=== PATIENT | female | born 2000 | race Caucasian/White ===

== ENCOUNTER 2024-11-30 16:39 | Outpatient (REF) | payer OTHER, SELFPAY ==
--- NOTE | ~2024-11-30 | US_ITS ---
CLINICAL HISTORY: Elevated d dimer STAT r o dvt Venous duplex ultrasound bilateral lower extremity Comparison: None provided Findings: The visualized deep veins are fully compressible with normal Doppler color flow and spectral tracings. No popliteal cyst. IMPRESSION: 1. Negative for bilateral lower extremity deep vein thrombosis. This document has been electronically signed by: Caryn Calabrese MD on 11/30/2024 20:07:12
== END 2024-11-30 16:40 | disposition home or self-care (01) ==
LOC: HO.US 16:39
PROVIDERS: PCP Family Medicine; Visit Provider Nurse Practitioner Family
DX: R79.89 Other specified abnormal findings of blood chemistry (principal)
CPT/HCPCS: 93970

== ENCOUNTER → 2024-11-30 17:00 | Outpatient (BNV) | payer OTHER, SELFPAY | PROVIDERS: PCP Family Medicine; Visit Provider Specialist | DX: R79.89 Other specified abnormal findings of blood chemistry (principal) | CPT/HCPCS: 93970 ==

== ENCOUNTER 2025-02-02 21:23 | Emergency (ER) | payer OTHER, SELFPAY ==
--- NOTE | 2025-02-02 | ECG_ITS ---
Test Reason : CHEST PAIN Blood Pressure : */* mmHG Vent. Rate : 97 BPM Atrial Rate : 97 BPM P-R Int : 124 ms QRS Dur : 66 ms QT Int : 352 ms P-R-T Axes : 51 10 6 degrees QTcB Int : 447 ms Normal sinus rhythm Normal ECG No previous ECGs available Referred By: Generic ED Physician Electronically Signed By: MINNIE SARMIENTO MD
--- NOTE | ~2025-02-02 | XR_ITS ---
CLINICAL HISTORY: pain 1 view chest x-ray Comparison: None provided Findings: The lungs are clear. Normal size heart. No acute fracture. IMPRESSION: 1. No acute findings. This document has been electronically signed by: Reyna Arroyo MD on 02/03/2025 00:21:37
[2025-02-02 21:25] VITALS: BP 146/65; PULSE 98; RESP 18; TEMP 36.3; O2SAT 97; BMI 45.7
[2025-02-02 21:48] LABS: Hematocrit 36.9 % (37.0-47.0); Hemoglobin 11.9 g/dl (12.0-16.0); Imm Gran Abs Auto 0.10 X10*3/uL (0.00-0.03); Imm Gran Pct Auto 0.7 % (0.0-0.4); Lymphocytes Absolute Auto 5.4 X10*3/uL (1.2-4.9); MANUAL DIFF FLAG SCAN; Mean Corpuscular HGB Conc 32.2 g/dl (31.0-35.0); Mean Corpuscular Hemoglobin 27.5 pg (27.0-33.0); Mean Corpuscular Volume 85.2 fL (80.0-98.0); NRBC Abs Auto 0.000 X10*3/uL (0.0-0.012); NRBC Pct Auto 0.0 /100WBC (0.0-0.2); Platelet Count 355 X10*3/uL (160-400); Red Blood Count 4.33 X10*6/uL (4.20-5.50); SCAN SMEAR FLAG 1; White Blood Count 14.1 X10*3/uL (4.8-10.8)
--- OUTSIDE RECORDS SUMMARY | 2025-02-02 22:00 | XMS_ITS | Clinical Summary ---
Author Organization [facility] Address [address] [place] [address] Care Team Providers Care Dredge Captain Name Role Phone Justino Santos MD Primary Care Provider [phone] Allergies Active Allergy Reactions Criticality Noted Date Comments Beef Containing Products Abdominal Pain 025 Medications albuterol (PROAIR HFA,VENTOLIN HFA) 90 mcg inhaler 5 Active ARIPiprazole (Abilify) 2 mg tablet Active ARIPiprazole (ABILIFY) 5 mg tablet 5 Active ondansetron (ZOFRAN) 4 mg tablet Take 4 mg by mouth every 8 hours as needed. 4 Active cetirizine (ZyrTEC) 10 mg tablet Take 10 mg by mouth daily. Active EPINEPHrine (EPIPEN) 0.3 mg/0.3 mL injection syringe Inject 0.3 mg into the outer thigh muscle as directed as needed. 5 Active FLUoxetine (PROzac) 20 mg capsule TAKE 1 CAP DAILY BY MOUTH 4 Active norethindrone-ethin estradioL (ORTHO-NOVUM 1-35,NORTREL 1-35) 1-35 mg-mcg per tablet Take 1 tablet by mouth daily. 5 Active ondansetron (ZOFRAN ODT) 4 mg disintegrating tablet SMARTSI-2 Tablet(s) By Mouth Every 8 Hours PRN 4 Active Social History Tobacco Use Types Packs/Day Years Used Date Smoking Tobacco: Never Passive Smoke Exposure: Never Smokeless Tobacco: Never Tobacco Cessation:Counseling Given: Not Answered Alcohol Use Standard Drinks/Week Comments Yes 0 (1 standard drink = 0.6 oz pur e alcohol) Comments Unknown Sex and Gender Information Value Date Recorded Sex Assigned at Female 04/04/2024 1:48 PM EST Legal Sex Female 3:02 PM EST Gender Identity Non-binary 03/29/2024 3:06 PM EST Sexual Orientation Lesbian or [place] 07/27/2024 12 :20 PM EDT Last Filed Vital Signs Vital Sign Reading Time Taken Comments Blood Pressure - - Pulse - - Temperature - - Respiratory Rate - - Oxygen Saturation - - Inhaled Oxygen Concentration - - Weight 128.4 kg (283 lb) 08/02/2024 11:07 AM EDT Height 170.2 cm (5' 7 ) 08/02/2024 11:07 AM EDT Body Mass Index 44.32 08/02/2024 11:07 AM EDT Plan of Treatment Upcoming Encounters Date Type Department Care Team (Late st Contact Info) Description 05/15/2025 Hospital Encounter [facility] Operating Room [address] [place] [address] Sherri Balderas MD [address] [place] [address] Scheduled Procedures Name Priority Associated Diagnoses Date/Ti me RECONSTRUCTION OF NIPPLE AND AREOLA Transgender Gender dysphoria MASTECTOMY, SIMPLE Transgender Gender dysphoria Health Maintenance Due Date Last Done Comments HIV Screening 2001 Hepatitis C Screening 2001 Pap Smear 2001 Varicella Vaccines (1 of 2 - 13+ 2-dose series) 2013 HPV Vaccines (1 - 3-dose series) 01/22/2016 Hepatitis B Vaccines (1 of 3 - 19+ 3-dose series) 12/25 Alcohol/Substance Use Screening 04/25/2024 Depression Screening and Follow-Up 04/25/2024 Social Drivers of Health Annual Screening 04/25/2024 COVID-19 Vaccine ( - season) 2024 Influenza Vaccine (#1) 2024 02/07/2023 Chlamydia Screening 07/09/2025 07/09/2024 DTaP,Tdap,and Td Vaccines (2 - Td or Tdap) 12/20/2032 12/20/2022 RSV Vaccine (60+ years old a nd patients) (1 - 1-dose 75+ series) 01/22/2076 Pneumococcal Vaccine: Pediat sandrine (0-5 Years) and At-Risk Patients (6-50 Years) Completed 11/03/2023 Goals Goal Patient Goal Type Associated Problems Recent Progress Patient-Stated? Author Autogenera vale Goal Care Plan Autogenerated Problem No Sinkis, Amira Additional Health Concerns Active Problems Noted Date Diagnosed Date Autogenerated Problem 10/01/2024 Insurance [facility] HMO/POS Care Teams Dredge Captain Relationship Specialty Start Date End Date Justino Santos MD [address] [place] [phone] PCP - General Family Medicine 04/04/24
--- OUTSIDE RECORDS SUMMARY | 2025-02-02 22:00 | XMS_ITS | Clinical Summary ---
Author Organization [facility] Address [address] [place] [address] Phone Care Team Providers Care Regional Clinical Research Associate Name Role Phone Physician, No Pcp Primary Care Provider Unavaila ble Allergies No known active allergies Social History Tobacco Use Types Packs/Day Years Used Date Smoking Tobacco: Never Assessed Comments Unknown Sex and Gender Information Value Date Recorded Sex Assigned at Not on file Legal Sex Female 2:37 PM EDT Gender Identity Not on file Sexual Orientation Not on file Plan of Treatment Health Maintenance Due Date Last Done Comments Gonorrhea/Chlamydia Screening 2001 Hepatitis B Vaccines (1 of 3 - 19+ 3-dose series) 01/22/2020 Cervical Cancer Screening: P ap Smear 2022 Depression Screening 04/25/2024 Cholesterol Screening (Lipid Panel) 08/14/2024 HIV Screening 08/14/2024 Hepatitis C Screening 08/14/2024 Social Influencers of Health Screening 08/14/2024 COVID-19 Vaccine ( - 2023-2 5 season) 2024 Influenza Vaccine (#1) 2024 02/07/2023 DTaP,Tdap,and Td Vaccines (2 - Td or Tdap) 12/20/2032 12/20/2022 RSV Immunization Adult Patients (1 - 1-dose 75+ series) 01/22/2076 HPV Vaccines Completed 11/03/2023, 08/06/2022, 06/18/2022 Pneumococcal Vaccine: Pediatrics (0 to 5 Years) and At-Risk Patients (6 to 49 Years) Completed 11/03/2023 HIB Vaccines Aged Out No longer eligi ble based on patient's age to complete this topic Hepatitis A Vaccines Aged Out No long er eligible based on patient's age to complete this topic IPV Vaccines Aged Out No longer eligi ble based on patient's age to complete this topic MMR Vaccines Aged Out No longer eligi ble based on patient's age to complete this topic Meningococcal ACWY Vaccine Aged Out N o longer eligible based on patient's age to complete this topic Meningococcal B Vaccine Aged Out No l onger eligible based on patient's age to complete this topic RSV Immunization Patients Under 20 months Aged Out No longer eligible b ased on patient's age to complete this topic Varicella Vaccines Aged Out No longer eligible based on patient's age to complete this topic Insurance Care Teams Regional Clinical Research Associate Relationship Specialty Start Date End Date Physician, No Pcp PCP - General 09/03/24
--- OUTSIDE RECORDS SUMMARY | 2025-02-02 22:01 | XMS_ITS | Data Portability ---
Author Organization [facility], [employer] Address [address] [place] [address] Assessment Encounter Date Assessment Date Assessment LastModified by Organization Details LastModified Time 11/27/2024 11/27/2024 During this encounter, 2 of the 3 elements of MDM addressed: (1)Number and Complexity of problems: 1 or more chronic illness with exacerbation, progression, or side effects of treatment (2)Amount/Complexi ty of data (need 1 out of 3 categories): Category 3: Discussion of management or test interpretation (3)Moderate Risk of morbidity from additional diagnostic testing or treatment (one needed): [email or web address] Not available 11/27/2024 11:57:24 11/29/2024 11/29/2024 Assessment - Elevated D-dimer, PE has been ruled out with CTA, but no doppler US done. - Differential diagnosis includes possible blood clots in the legs (DVT), though considered unlikely. - Consideration of GERD or reflux as a potential cause of chest discomfort, given past history of acid reflux. Plan - Ultrasounds of the legs will be ordered and marked as stat to ensure they are completed before the upcoming gallbladder surgery. The office will contact Bro[facility] for scheduling, likely by the next day. - It is recommended to consider a consultation with a dry press operator to further evaluate the chest discomfort and elevated D-dimer levels. - For potential reflux symptoms, try a dose of Maalox Max or Mylanta Max to see if it alleviates the discomfort. This could help determine if reflux is contributing to the symptoms. - Use the existing supply of omeprazole 20 mg once daily, preferably before supper, to manage any potential acid reflux. If symptoms persist or worsen, the dosage may be adjusted. Prescription - Omeprazole 20 mg once daily before dinner, use existing supply 35 minutes spent on date of service on chart review, direct time spent with patient, and documentation of clinical encounter. [email or web address] Not available 11/29/2024 21:26:22 01/07/2025 01/07/2025 Assessment - Neurological symptoms with neck weakness, left arm radiation, numbness and tingling in left fingertips, and worsening brain fog; etiology undetermined at this time - History of neurocardiogenic syncope - History of Lyme disease, previously treated with doxycycline Plan - Await evaluation by Dr. Santos for further assessment of neurological symptoms and neck weakness. - Remain in clinic for follow-up by attending physician as indicated. Assessment - Symptoms likely related to underlying condition causing hypersensitivity of the nervous system - Reflex tachycardia associated with presyncope episodes - No evidence of acute neurological emergency or need for immediate imaging - No indication of acute multiple sclerosis or other dangerous acute process - Transient chest pain resolved, not concerning for acute cardiac event - Numbness in hands likely secondary to presyncope episode Plan - Prescribed propranolol at a very low dose, scheduled twice daily, to help prevent reflex tachycardia and presyncope symptoms. Medication to be sent to [facility] pharmacy. - Advised to discontinue propranolol immediately if dissociation or other adverse side effects occur. - Recommended close monitoring of symptoms over the next one to two days. - Instructed to contact the clinic or return for evaluation if symptoms worsen, including increased weakness or progression of neurological symptoms, even if this occurs later the same day. - If symptoms progress, MRI or CAT scan of the cervical spine will be considered to evaluate for possible nerve or spinal cord pathology. - Advised to reach out to the clinic if symptoms are getting worse. Prescription - Propranolol, low dose, scheduled twice daily; risk of dissociation d iscontinue if dissociative side effects occur I, Dr Santos personally evaluated. The following time was spent on todays E/M encounter, including preparing for the visit, reviewing results, seeing the patient, and documentation on the date of service of the encounter: 31 [email or web address] Not available 01/09/2025 21:17:22 01/17/2025 01/17/2025 Assessment - Etiology of syncope undetermined; further evaluation with MRI and neurology consult indicated - Decreased hand strength and abnormal sensation; etiology undetermined, further evaluation pending - Fall without loss of consciousness; etiology undetermined - Family history of multiple sclerosis and familial inclusion body myositis noted; consideration for neurological evaluation - No evidence that propranolol contributed to syncope per patient history Plan - Order MRI of the brain with contrast to further evaluate neurological symptoms and family history of multiple sclerosis and familial inclusion body myositis. MRI to be scheduled at [facility], with office staff to contact early next week regarding appointment details. - Refer to neurology for specialist evaluation and opinion, particularly in the context of family history of multiple sclerosis and other neuromuscular disorders. Office staff to contact next week to arrange neurology appointment. - Continue current medication regimen without changes at this time. - Review MRI results upon completion and initiate follow-up contact to discuss findings and next steps. - Await office call for scheduling of MRI and neurology consultation, expected within approximately two weeks. Appointments - Brain MRI with contrast at [facility], scheduling pending (office to call early next week) - Neurology consultation with [facility] neurologist, scheduling pending (coordination next week) [email or web address] Not available 01/17/2025 13:06:42 Plan of Treatment Reminders Order Date Submit Date Provider Last Modified By Organization Details Last Modified Time Details Appointments None recorded. Lab HbA1c (hemoglobi n A1c), blood 2024 025 [place], [address] [place], [address], 11:57:40 Referral neurologis t referral - ? MS - MRI ordered and pending 2024 025 [facility], [address], [place], [address], 09:20:[address] referral 2024 025 [facility] , [address] [place] [address] Dr, [facility], [place], [address], 12:42:19 Procedures None recorded. Surgeries None recorded. Imaging MRI, brain, w/wo contrast 2024 025 [facility]), [address], [place], [address], 13:35:04 US, duplex, venous, lower extremity - right leg [address] [facility], [address] [place], [address], 14:52:44 US, duplex, venous, lower extremity - left leg [address] [facility], [address] [place], [address], 14:52:45 Medication Orders propranolo l 10 mg tablet 2024 025 [email or web address] [id number], [address] [place], [address], 09:31:39 omeprazole 20 mg capsule,de layed release 2024 025 [email or web address] [facility][id number], [address] [place], [address], 12:47:20 Patient TargetsNo targets recorded. Patient Instructions Encounter Date Encounter Id Patient Instructions Last Modified By Organization Details Last Modified Time 01/07/2025 [id number] Based on our discussion, I have outlined the following instructions for you: - set up machinist propranolol from [facility] pharmacy and take it at the very low dose, twice a day, as prescribed. - Stop taking propranolol right away if you feel disconnected from yourself (dissociation) or have any other bad side effects. - Pay close attention to how you feel over the next one to two days. - Contact the clinic or come in for evaluation if your symptoms get worse, including if you feel weaker or notice new or worsening neurological symptoms, even if this happens later the same day. - If your symptoms get worse, you may need an MRI or CAT scan of your neck to check for possible nerve or spinal cord problems. Thank you again for your visit, and we look forward to supporting you in your journey to better health. [email or web address] Not available 01/07/2025 10:00:08 01/17/2025 [id number] Based on our discussion, I have outlined the following instructions for you: - Keep taking your current medicines just as you have been. Do not make any changes. - After your brain scan (MRI) is done, you will be contacted to talk about the results and what to do next. Next appointment(s): - Brain MRI with contrast at [facility], scheduling pending (office to call early next week) - Neurology consultation with [facility] neurologist, scheduling pending (coordination next week) Thank you again for your visit, and we look forward to supporting you in your journey to better health. 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 MS - MRI ordered and pending Referring Physician: Justino Santos [facility], Encounter Date: 01/17/2025 Results Created Date Observation Date Name Description Value Unit Range Abnormal Flag Note LastModifiedBy Organization Detail LastModifiedTime Result Notes None recorded. Problems Name Problem SNOMED Code Status Onset Date Resolution Date Notes Provider Name and Address Organization Details Recorded Time Vasovagal syncope 050486403 Active 2023 SUZANNE TEJADA PA-C [address] [facility] [address], [place], [address], [place] [facility] 5 11:55:52 Gender identity finding 688014331 Active 2023 SUZANNE TEJADA PA-C [address] [facility] [address], [place], [address], [place] [facility] 4 08:48:39 History of eating disorder 8265334191437 01 Active 2023 SUZANNE TEJADA PA-C [address] [facility], [facility] [address], [place], [address], [place] [facility] 4 08:48:42 Obsessive-c ompulsive disorder 254206568 Active 2023 SUZANNE TEJADA PA-C [address] [facility], [facility] [address], [place], [address], [place] [facility] 4 08:48:43 Depressive disorder 11236864 Active 2023 SUZANNE TEJADA PA-C [address] [facility], [facility] [address], [place], [address], [place] [facility] 4 08:48:46 Bipolar II disorder 29949401 Active 2023 SUZANNE TEJADA PA-C [address] [facility], [facility] [address], [place], [address], [place] [facility] 4 08:48:46 Generalized anxiety disorder 52150070 Active 2023 SUZANNE TEJADA PA-C [address] [facility], [facility] [address], [place], [address], [place] [facility] 4 08:48:59 Palpitation s 57386843 Active 2024 SUZANNE TEJADA PA-C [address] [facility] [address], [place], [address], [place] [facility] 5 11:55:52 Orthostatic hypotension 09065090 Active 2024 SUZANNE TEJADA PA-C [address] [facility] [address], [place], [address], [place] [facility] 5 11:55:53 D-dimer above reference range 671449977 Active 2024 Marbella Coleman NP [address] [facility], [facility] [address], [place], [address], [place] [facility] 5 15:59:53 Gastroesoph ageal reflux disease 777588263 Active 2024 Marbella Coleman NP [address] [facility] [address], [place], [address], [place] [facility] 5 16:02:42 Problem Notes None recorded. Procedures Surgical History Date Name Laterality Status Provider Name and Address Organization Details Recorded Time cholecystectomy completed SUZANNE TEJADA PA-C [address] [facility], [facility] [address], [place], [address], [place] [facility] 02/01/2025 11:47:40 Imaging Results None recorded. Procedure Notes None recorded. Medical Equipment None Reported. Medications Name Sig Start Date Stop Date Status Note LastModified by Organization Details LastModified Time fluoxetine 40 mg capsule TAKE 1 CAPSULE BY MOUTH EVERY DAY 11/27 completed Not Available Not Available Not Available naltrexone 50 mg tablet TAKE 1/4 OF A TABLET BY MOUTH DAILY 01/17 completed Not Available Not Available Not Available atenolol 25 mg tablet TAKE 1 TABLET (25 MG TOTAL) BY MOUTH DAILY. 04/16 completed Not Available Not Available Not Available omeprazole 40 mg capsule,del ayed release TAKE 1 CAPSULE BY MOUTH EVERY DAY 11/29 completed Not Available Not Available Not Available propranolol 10 mg tablet TAKE 1 TABLET BY MOUTH TWICE A DAY 2024 active Not Available Not Available Not Avai lable triamcinolo ne acetonide 55 mcg nasal spray aerosol USE 1 TO 2 SPRAYS IN EACH NOSTRIL DAILY 11/29 completed Not Available Not Available Not Available fluoxetine 10 mg capsule TAKE 1 CAPSULE BY MOUTH EVERY DAY 04/16 completed Not Available Not Available Not Available omeprazole 20 mg capsule,del ayed release Take 1 capsule every day by oral route. 01/17 completed Not Available Not Available Not Available epinephrine 0.3 mg/0.3 mL injection, auto-inject or PRN active Not Available Not Available Not Available albuterol sulfate HFA 90 mcg/actuati on aerosol inhaler INHALE 2 PUFFS INTO THE LUNGS EVERY 4 HOURS NEEDED FOR COUGH OR WHEEZING OR SHORTNESS OF BREATH active Not Available Not Available No t Available ondansetron 4 mg disintegrat ing tablet PLACE 1 TABLET 3 TIMES A DAY BY TRANSLING UAL ROUTE NEEDED FOR 7 DAYS active Not Available Not Available No t Available fluoxetine 20 mg capsule TAKE 1 CAPSULE BY MOUTH ONCE DAILY active Not Available Not Available No t Available oxycodone 5 mg tablet TAKE 1 TABLET BY MOUTH EVERY 4 HOURS NEEDED FOR PAIN 01/07 completed Not Available Not Available Not Available aripiprazol e 10 mg tablet Take 1 tablet every day by oral route. active Not Available Not Available No t Available aripiprazol e 15 mg tablet TAKE 1/2 TABLET BY MOUTH DAILY 02/01 completed Not Available Not Available Not Available aripiprazol e 5 mg tablet TAKE 1.5 TABLETS BY MOUTH DAILY 11/29 completed Not Available Not Available Not Available ProChamber USE WITH INHALER DIRECTED active Not Available Not Available No t Available testosteron e 20.25 mg/1.25 gram per pump act.(1.62 %) transdermal gel 2 PUMPS TO SKIN IN THE MORNING TO SHOULDER, UPPER ARMS OR ABDOMEN TRANSDERM AL ONCE A DAY 30 DAYS 07/11 completed Not Available Not Available Not Available Alyacen (28) 1 mg-35 mcg tablet TAKE 1 TABLET BY MOUTH DAILY. SKIP PLACEBO PILLS active Not Available Not Available No t Available Vitals Date Recorded Body height Body mass index (BMI) Body weight Heart rate Oxygen saturation Oxygen saturation in Arterial blood by Pulse oximetry Systolic And Diastolic Provider Name and Address Organization Details Last Updated DateTime 5 170.18 cm 44.8 kg/m2 079858. 42 g 84 /min 98 % 98 % 110/90 mm[Hg] [facility] 10:02:46 Date Recorded Body height Body mass index (BMI) Body weight Oxygen saturation Oxygen saturation in Arterial blood by Pulse oximetry Heart rate Systolic And Diastolic Provider Name and Address Organization Details Last Updated DateTime 5 170.18 cm 44.4 kg/m2 632115. 04 g 98 % 98 % 90 /min 122/76 mm[Hg] Idalia Johnson becca [facility] 5 15:32:20 Date Recorded Body height Heart rate Oxygen saturation Oxygen saturation in Arterial blood by Pulse oximetry Systolic And Diastolic Provider Name and Address Organization Details Last Updated DateTime 5 170.18 cm 80 /min 98 % 98 % 122/74 mm[Hg] Mahogany Bennett, WIRE WELDER [address] [facility] [address], [place], [address], [facility] 5 09:35:41 Date Recorded Body height Body mass index (BMI) Body weight Oxygen saturation Oxygen saturation in Arterial blood by Pulse oximetry Heart rate Systolic And Diastolic Provider Name and Address Organization Details Last Updated DateTime 5 170.18 cm 46.7 kg/m2 952244. 53 g 99 % 99 % 80 /min 128/80 mm[Hg] [facility] 5 12:48:41 Date Recorded Body height Body mass index (BMI) Body weight Oxygen saturation Oxygen saturation in Arterial blood by Pulse oximetry Heart rate Systolic And Diastolic Provider Name and Address Organization Details Last Updated DateTime 170.18 cm 46 kg/m2 401367. 16 g 99 % 99 % 67 /min 126/74 mm[Hg] Idalia hudson [place] [facility] 11:32:08 Social History Question Answer Notes LastModified by Organizat [facility] Details LastModified Time Tobacco Smoking Status Never Smoker SUZANNE TEJADA PA-C [address] [place] [address] [address], [place], [address], [facility] 04/16/2024 08:24:32 What Was The Date Of Your Most Recent Tobacco Screening? 04/16/2024 Socially [email or web address] Information not available 04/16/2024 Sex: Female Functional Status Question Answer Note LastModified by Organizat [facility] Details LastModified Time Do you use any illicit or recreational drugs? edibles or smoking 5-7 times per week [email or web address] Information not available 04/16/2024 Mental Status None recorded. Family History Relationship Description Onset Age of this Age Resolved Age Notes LastModified by Organization Details LastModified Time Maternal Grandmother Diabetes mellitus [email or web address] Not available 2023 08:20:03 Maternal Grandmother Myocardial infarction 45 undete rmined if AR was cause of [email or web address] Not available 04/16/2024 08:21:13 Maternal Uncle Diabetes mellitus Not available 2023 08:20:03 Paternal Grandmother Myocardial infarction 50 [email or web address] Not available 04/16 08:21:13 Father Hypertensive disorder [email or web address] Not available 2023 08:21:56 Unspecified Relation Obesity matern al side [email or web address] Not available 04/16/2024 08:22:10 Unspecified Relation Depressive disorder [email or web address] Not available 2023 08:22:56 Unspecified Relation Bipolar disorder [email or web address] Not available 2023 08:23:10 Unspecified Relation Anxiety disorder Not available 2023 08:23:23 Medical History No medical history recorded. Gynecological HistoryNo gynecological history recorded. Obstetrics History GPAL:G 0 P 0 0 0 0 Past Encounters Encounter ID Performer Location Encounter Start Date Encounter Closed Date Diagnosis/Indication Diagnosis SNOMED-CT Code Diagnosis ICD10 Code Diagnosis IMO Codes Diagnosis Note [id number] SUZANNE TEJADA PA-C Main Office [address] [place] [address],[address] [place] [address] 04/16/2024 07:52:15 04/16/2024 08:33:44 Patient new to provider [id number] 32142 Z76.89 Patient new to practice, here to establish care. Has not been seen by this office or provider within the last 3 years. Generalize d anxiety disorder 79606591 F41.1 [facility]; followed Q4-6 weeks.Cont inues with therapist. Maintained on aripiprazo le and fluoxetine , although not currently taking meds in last few weeks. Depressive disorder 3548 9007 F32.A As above. Bipolar II disorder 8322 5003 F31.81 As above. Obsessive- compulsive disorder 269106295 F42.9 History of eating disorder 2368794312 73563 Z86.59 Vasovagal syncope 373837 [address] Florence. Continues with good hydration and electrolyt e repletion. Has not trialed compressio n socks. Curious if they may struggle with an underlying POTS diagnosis. Gender shamar ntity finding 222939823 F64.0 Testostero ne therapy prescribed by [facility] oming breast reconstruc tion consult July [address] Sherri Balderas at [facility]. Allergic r eaction to food 832844819 T78.1XXS Requests referral for formal allergy testing. 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 [id number] Justino Santos DO Main Office [address] [facility],[address] [place] [address] 08/29/2024 08:18:21 08/29/2024 09:18:42 Bipolar disorder 94277770 F31.81 Immobility syndrome 2029 25022 M62.3 [id number] fax [phone] Obstructiv e sleep apnea syndrome 26093775 G47.33 671704 Postural o rthostatic tachycardia syndrome 594466955 G90.A 371436 [id number] Justino Santos DO Main Office [address] [facility],[address] [place] [address] 10/10/2024 08:30:10 10/10/2024 09:10:49 Biliary calculus 594857231 K80.20 [id number] Obsessive- compulsive disorder 397232950 F42.9 Tick bite 83276683 S20.3 61D W57.XXXD 9480259162 Acute vomiting 33616252 R11.10 4537558 [id number] SUZANNE TEJADA PA-C Main Office [address] [facility],[address] [place] [address] 11/27/2024 09:56:30 11/27/2024 10:28:12 Seen in department 583360831 Z76.89 [id number] 11/11/2024 emergency medicine note reviewed. Palpitations 56474264 R0 0.2 43578 Prediabetes 856525018 R7 3.03 874568 Vasovagal syncope 800853 005 R55 [id number] Previously followed by Dr. Florence, although not at this time. Management as above.10/17: Positive head up Tilt Table Test for neurocardi ogenic (vasovagal ) syncope. The patient exhibited a mixed cardioinhi bitory and vasodepres sor response after 10 minutes of an upright tilt. Orthostati c hypotension 61613862 R42 9444609 Suspected underlying POTS; patient has not been formally diagnosed but would like to establish with cardiology for further evaluation . Does have concerns regarding underlying EDS, which they believe may have been an etiology present on maternal side as well, although unofficial ly diagnosed. Continues with conservati ve management including compressiv e socks, adequate hydration, electrolyt e repletion, slow transition al changes, etc. Chest pain 35177843 R07. 9 90770956 1 episode of atypical chest pain on 11/15/24 with spontaneou s resolution and no recurrence ; no clear contributi ng musculoske letal/pulm onary factors. No evidence of ACS per ED documentat ion. Will arrange a referral to a cardiologi st for further evaluation of chest pain and potential POTS diagnosis. The patient expressed discomfort with the previous cardiologi st, so it is recommende d to research and find a suitable cardiologi st who is well-verse d in autonomic dysfunctio n and Simran-Cristi los Syndrome. Bipolar II disorder 8322 5003 F31.81 Followed/m anaged by psychiatry . Patient initially requesting updated labs for psych, but we reviewed that recent CBC, CMP, TSH from June 2024 should be adequate. Patient will reach out if they need any additional order sent. [id number] Marbella Coleman NP Main Office [address] [place] [address] [place] [address] 11/29/2024 15:13:47 11/29/2024 16:04:52 D-dimer above reference range 307289593 R79.89 92081068 Gastroesop hageal reflux disease 537797208 K21.9 [id number] Justinokathleen Santos DO Main Office [address] [place] [address] [place] [address] 01/07/2025 09:24:23 01/07/2025 09:54:22 Vasovagal syncope 725307438 R55 255594 Orthostati c hypotension 97616787 R42 1643712 Depressive disorder 3548 9007 F32.A Mild major depression 87 275651 F32.0 75615 Recurrent major depressive episodes, mild 798706078 F33.0 49398 [id number] Justino Santos DO Main Office [address] [place] [address] [place] [address] 01/17/2025 12:40:23 01/17/2025 13:27:07 Vasovagal syncope 280096023 R55 502995 Multiple sclerosis 54996 007 G35 03829 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 No evidence of ACS per ED documentat ion. Will arrange a referral to a cardiologi st for further evaluation of chest pain and potential POTS diagnosis. The patient expressed discomfort with the previous cardiologi st, so it is recommende d to research and find a suitable cardiologi st who is well-verse d in autonomic dysfunctio n and Simran-Cristi los Syndrome. Health Concerns Section Related Observation LastModified by Organization Detai ls LastModified Time None Recorded Concern Status LastModified by Organization Details LastModified Time None Recorded Advance Directives Directive None Recorded Payers Insurance Date Sequence Insurance Name Policy Number Policy Ross Covered Member ID Ross Member ID Guarantor Name 10/24/2024 1 [facility]: HMO [facility] (HMO) [id number] Brooke Jo [id number] Brooke Jo 01/31/2025 2 [facility] (HMO) [id number] Brooke L Jo [id number] Brooke Jo 11/27/2024 1 [facility] [employer] - TOGETHER (MEDICAID HMO) [id number] Brooke L Jo [id number] Brooke Jo 01/31/2025 1 [facility] [employer] - TOGETHER WITH [employer] (MEDICAID REPLACEMENT - HMO) [id number] Brooke L Jo [id number] Brooke Jo Notes Date Note Type Note Provider Name and Address Organization Details Recorded Time 11/27/2024 text/html ROS as noted in the HPI Brooke Osorio, 24-year-old nonbinary patient (AFAB), presents for an ED discharge visit. Patient reported an episode of chest pain, with a severe episode on November 15, 2024, described as sharp, central but slightly left-sided, lasting approximately 6 hours while at rest, which prompted them to obtain an ED evaluation. Onset of sx occurred while watching tv. Previous chest pain episodes were less severe and attributed to suspected POTS. During the November 15 episode, also experienced jaw locking and mild left arm discomfort, as well as numbness and tingling in the left fingers, all resolving spontaneously. Pain improved with compression/massaging of affected area. EKG was NSR. No labs runs. ED suspected MSK etiology. No recent recurrence of chest pain since that episode. No recent infections, trauma, cough, or lower extremity swelling. No abdominal pain, nausea, or vomiting associated with chest pain. Two prior ER visits for gallbladder issues reported; scheduled for elective cholecystectomy next week. Experiences intermittent palpitations, stable since childhood, described as a sensation of veins sinking in arms and legs, with heart rate picking up and occasional skipped beats, occurring a few times daily for years without change. Symptoms of lightheadedness and dizziness with positional changes, especially when climbing stairs, with heart rate dropping to 54 and spiking to 154, as measured by Apple Watch. Noted worsening of symptoms since Lyme disease. History of heart murmur since childhood; last echocardiogram approximately one year ago. Multiple prior Zio patch monitors showed occasional premature ventricular or atrial beats. Previously trialed beta rosas, which caused significant blood pressure drops. SUZANNE TEJADA PA-C [address] [facility], [address], [place], [phone], [facility] 11/27/2024 12:00:04 11/29/2024 text/html ROS as noted in the HPI Brooke Osorio, 24-year-old female - Chest pain started a while ago, progressively worsening, described as feeling like knives attached to fingertips in the chest area - Chest pain became severe a couple of weeks ago, prompting first ER visit; pain abated for 2 weeks, then recurred with increased severity on the morning of the current visit, causing awakening from sleep in tears - No association of chest pain with exertion; occurs at rest, including while lying in bed or going to the bathroom - No associated nausea, sweats, or shortness of breath reported - No heartburn symptoms - No recent trauma, travel, or new strenuous exercise - History of gallstones; admitted to ER twice over a month ago for gallbladder pain, described as very different from current chest pain - Reports westbrook splint-like pain in legs for past few days, history of westbrook splints from previous point dancing - Noted increased bruising on legs and color changes, no recent shaving - No leg swelling reported, but some tenderness in the front of legs - No recent infection, dental work, or menstruation - History of acid reflux in the past, previously treated with omeprazole 40 mg daily for 2 months with resolution of symptoms - Reports increased anxiety related to upcoming gallbladder surgery, first major surgery Marbella Coleman, [employer] [address] [facility] [address], [place], [phone], [place] [facility] 11/29/2024 21:26:36 01/07/2025 text/html ROS as noted in the HPI Brooke Osorio 24-year-old female - Sudden onset of significant neck weakness during dinner last night, without pain or stiffness, able to turn neck but difficulty holding head up - Weakness radiating down left side, currently to left shoulder blade and arm - Mild numbness and tingling in left fingertips - Marked increase in brain fog, worse than baseline, with difficulty remembering recent events and trouble with orientation while driving - History of neurocardiogenic syncope with baseline brain fog, but current symptoms more severe than usual - Similar left-sided numbness (without neck weakness) occurred previously at time of Lyme disease diagnosis; treated with one month of doxycycline, no recheck - Denies recent COVID infection - No medications taken for current symptoms prior to visitBrooke Osorio 24-year-old female - Right hand clumsiness and weakness noted while texting and gripping phone prior to visit - No limitation in shoulder range of motion - Denies sensation changes - Experienced ringing in ears and presyncope last night - Dizziness reported when changing positions (laying to sitting, sitting to standing) - Slept normally, woke up rested - Sudden chest pain at sternum lasting about one minute, resolved, did not recur - Presyncope episodes occur a couple times a day - Salt tablets provide temporary relief during episodes - Prior use of naltrexone reported as helpful for presyncope - Prior use of atenolol caused dissociation and hypotension - Both hands became numb following presyncope episode prior to visit Justino Santos, [address] [facility], [facility] [address], [place], [phone], [place] [facility] 01/09/2025 21:18:22 01/17/2025 text/html ROS as noted in the HPI Julisa Osorio 24-year-old female - Fainted twice prior to initial medical visit, sought fluids - Passed out Tuesday night prior to starting propranolol, started propranolol Tuesday, passed out again Tuesday - No fainting episodes since starting propranolol - Reports persistent weakness and abnormal sensation in hands, difficulty clenching fists - Fell yesterday without loss of consciousness, describes sudden inability to walk - Stopped naltrexone a couple of weeks ago due to difficulty swallowing, no perceived difference since discontinuation - 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 - Family history of multiple sclerosis and familial inclusion body myositis Justinokathleen Santos, DO [address] [facility], [address], [place], [phone], [place] [facility] 01/17/2025 13:07:45 02/01/2025 text/html ROS as noted in the HPI chest pain restarted within last 4 nightsfeel slike someting i is inside chest (just to the right)comes and goessimilar to past but worseafter eating and going to the bathroom7-12/02having to thinkvomiting difficulty swallowing- nauseoud immediately, few weekshistory of cholecytecomy in nov 2024- removed d/t gallstones f/u nov cardioAbstephanie Osorio, age 25, reports recurrence of chest pain beginning three nights ago, described as a sensation of someone inside her chest within her throat, slightly to the right of center. The pain is present throughout the day, comes and goes, and is more severe than previous episodes. She notes that the pain sometimes worsens after eating or when going to the bathroom. She rates the severity as high, stating it makes her focus on her breathing. She also reports difficulty swallowing, which has been ongoing for a few weeks, characterized by nausea with any food in her mouth, but not due to tongue swelling. She experiences similar nausea with liquids, requiring her to hold liquids in her mouth before swallowing, and sometimes feels unable to swallow at all. She has been throwing up more frequently recently, with episodes triggered by random factors such as certain smells (e.g., litter box) and sometimes after eating, regardless of the type of food. She has a history of gallbladder removal in November 2024, following two emergency department visits for inability to keep food or fluids down and recurrent vomiting after eating. Gallstones were identified prior to surgery. Postoperatively, she experienced night sweats and increased pain about a week after surgery, which resolved without fever. She reports ongoing symptoms similar to those experienced before gallbladder removal, including immediate need to use the bathroom after eating and inability to retain food. She was previously prescribed omeprazole for suspected acid reflux, which provided limited relief, and used it for approximately three months, taking it on an empty stomach. She has Pepcid at home for symptom management. She denies heartburn. She avoids fried foods and dairy due to intolerance and prefers sushi, sometimes with spicy casanova. She reports tingling and numbness in her fingers coinciding with chest pain episodes. She has a family history of multiple sclerosis and a familial myositis-like condition, with her grandfather affected. She underwent muscle density testing in the emergency department, which was normal. She has had recent laboratory testing in the emergency department, including liver and kidney function, complete blood count, and tick testing, all of which were normal as of January 11, 2025. She denies fever and chills. She is scheduled to see a nurse practitioner in cardiology in February and has a brain MRI planned due to family history of MS. Not Available Not Available Not Available OBGyn Episode No OBEpisode recorded.
[2025-02-02 22:08] LABS: Alanine Aminotransferase 50 U/L (0-31); Albumin Level 4.4 g/dL (3.5-5.0); Alkaline Phosphatase 90 U/L (39-117); Anion Gap 10 (12-20); Aspartate Amino Transferase 35 U/L (5-31); Blood Urea Nitrogen 14 mg/dL (9-16); Calcium 9.2 mg/dL (8.4-10.2); Carbon Dioxide 25 mmol/L (22-29); Chloride 108 mmol/L (96-108); Creatinine Clr Calc Pharmacy 143.1; Estimated Glomerular Filt Rate > 60; Lipase 16 U/L (8-78); Magnesium 2.0 mg/dL (1.6-2.6); Potassium 3.9 mmol/L (3.3-5.1); Sodium 139 mmol/L (135-145); Total Protein 7.6 g/dL (6.5-8.0)
[2025-02-02 22:18] LABS: Troponin-I High Sensitivity < 2.7 ng/L (<3.5-17.0)
--- NOTE | 2025-02-02 22:54 | ED_ITS ---
HPI - Chest Pain General Chief Complaint: Chest Pain Stated Complaint: abd pain Time Seen by Provider: 02/02/25 22:38 Source: patient Limitations: no limitations History of Present Illness ED Provider: Luzma Majano PA-C HPI narrative: 25F with a past medical history of GERD, recent cholecystectomy in Nov, neurocardiogenic syncope, PVCs, bipolar disorder, anxiety/depression presents to the ED for evaluation of chest pain. States chest pain has been coming and going for months, lasts for hours at a time. Describes it as retrosternal, nonradiating. Chest pain is associated with dyspnea, N/V, nonbloody emesis. Endorsing yellow diarrhea since cholecystectomy, increased frequency for the past 2-3 weeks, up to 5 times a day. No recent illnesses, ABX use, recent travel, or sick contacts. Seen by PCP yesterday, started on omeprazole 40mg BID. Has not noticed an improvement yet. She was previously started on propranolol with no improvement. Currently undergoing outpatient cardiac and GI workup. Multiple holter monitor trials done with no findings to explain patient's symptoms. Related Data Allergies Allergy/AdvReac Type Severity Reaction Status Date / Time No Known Allergies Allergy Verified 02/02/25 21:26 Review of Systems 2 Review of Systems: Yes all other systems are reviewed and are negative Constitutional: Constitutional: Denies chills, Denies fatigue and Denies fever(s) Cardiovascular: Cardiovascular: Reports chest pain, Denies leg edema and Reports dyspnea Respiratory: Respiratory: Reports dyspnea Gastrointestinal: Gastrointestinal: Reports abdominal pain, Denies melena, Denies hematochezia, Denies constipation, Reports heartburn, Reports diarrhea, Reports nausea, Reports vomiting and Denies hematemesis Genitourinary: Genitourinary: Reports no additional female genitourinary complaints Psychiatric: Psychiatric: Reports anxiety and Reports depression Endocrine: Endocrine: Denies fatigue PMFSH Past Medical History Attestation statement: The following information was validated with the patient. Social History Social History Alcohol intake: current Alcohol intake frequency: holidays/special occasions only Alcohol type: beer, wine and hard liquor Substance Use Type: Marijuana Physical Exam 2 Vital Signs: Vital Signs: Last Vital Signs Temp 97.9 F 02/03/25 01:32 Pulse 79 02/03/25 01:32 Resp 20 02/03/25 01:32 BP 106/72 02/03/25 01:32 Pulse Ox 99 02/03/25 01:32 O2 Del Method Room Air 02/03/25 01:32 BMI result Body Mass Index 45.7 Const: Other: Alert General: no acute distress, alert and awake Nutritional Appearance: o bese Orientation/consciousness: patient oriented x3 Chest: Chest palpation & inspection: normal inspection of the chest and normal palpation of entire chest wall Resp: Effort & Inspection: normal respiratory effort Auscultation: clear to auscultation bilaterally Cardio: Other: Normal peripheral perfusion Rate: regular rate Rhythm: regular rhythm GI: Other: Obese abdomen, nontender nondistended no guarding Inspection: Yes normal to inspection Palpation (GI): Soft to palpation, nontender and No Rebound tenderness present Skin: Other: Warm dry no rash Neuro: General: patient oriented x3, gait normal, no focal motor deficits and CN's II-XI intact bilaterally Psych: Other: cooperative Course Course Course Narrative: I Luzma Majano assessment. Aileen DANIELLE helped to formulate the documentation Medical Decision Making Medical Decision Making MDM Narrative: 25F with a past medical history of GERD, recent cholecystectomy in Nov, neurocardiogenic syncope, PVCs, bipolar disorder, anxiety/depression presents to the ED for evaluation of chest pain. States chest pain has been coming and going for months, lasts for hours at a time. Describes it as retrosternal, nonradiating. Chest pain is associated with dyspnea, N/V, nonbloody emesis. Endorsing yellow diarrhea since cholecystectomy, increased frequency for the past 2-3 weeks, up to 5 times a day. No recent illnesses, ABX use, recent travel, or sick contacts. Seen by PCP yesterday, started on omeprazole 40mg BID. Has not noticed an improvement yet. She was previously started on propranolol with no improvement. Currently undergoing outpatient cardiac and GI workup. Multiple holter monitor trials done with no findings to explain patient's symptoms. I've considered the following diagnoses: ACS, pulmonary embolism, pneumothorax, pancreatitis, C diff, reflux Plan: Patients symptoms are chronic, had her PCP appt yesterday and was told to present to the ED if symptoms persist. EKG normal sinus rhythm, troponin flat. PERC score of 1 due to NELLIE use. Patient not hypoxic or tachycardic, pulmonary embolism unlikely. CXR with no evidence of pneumothorax. Epigastric/LUQ tenderness on exam but lipase wnl making pancreatitis unlikely. Diarrhea could be bile acid- related, post cholecystectomy. Patient provided stool sample, CDiff PCR and GI panel pending. Proceed with pending GI referral for outpatient workup of diarrhea and potential GI cause of chest pain. I've reviewed the following results: CBC showing leukocytosis of 14.1 and mild anemia. CMP with small bump in liver transaminases. EKG Vent. Rate : 97 BPM Atrial Rate : 97 BPM P-R Int : 124 ms QRS Dur : 66 ms QT Int : 352 ms P-R-T Axes : 51 10 6 degrees QTcB Int : 447 ms Normal sinus rhythm Normal ECG No previous ECGs available CXR Findings: The lungs are clear. Normal size heart. No acute fracture. IMPRESSION: 1. No acute findings. Per Luzma Majano PA-C The patient is here with all chronic complaints. She has been told by her primary care provider and passenger service representative if she develops chest pain she should be seeking emergent medical attention. Beyond obesity she has no risk factors for coronary artery disease, screening labs including EKG chest x-ray and troponin obtained. Waiting on the chest x-ray. Stool cultures were ordered from triage, technically she has no risk factors, we tried to have her give a sample, she can not, her chronic diarrhea is likely secondary to her cholecystectomy. Differential Diagnosis Differential Diagnoses: The differential diagnosis associated with the presentation includes See medical decision-making Admission/Observation Consideration of admission/observation: Escalation of care including admission/observation considered Not applicable Lab Data MDM Lab Attestation statement: I reviewed the patient's lab results. 02/02/25 21:39 02/02/25 21:39 Labs: Lab Results 02/02/25 02/03/25 Range/Units 21:39 00:21 WBC 14.1 H (4.8-10.8) X10*3/uL RBC 4.33 (4.20-5.50) X10*6/uL Hgb 11.9 L (12.0-16.0) g/dl Hct 36.9 L (37.0-47.0) % MCV 85.2 (80.0-98.0) fL MCH 27.5 (27.0-33.0) pg MCHC 32.2 (31.0-35.0) g/dl RDW 14.1 (11.0-16.0) % Plt Count 355 (160-400) X10*3/uL MPV 10.0 (9.4-12.3) fL Immature Gran % (Auto) 0.7 H (0.0-0.4) % Neut % (Auto) 49.7 (45-73) % Lymph % (Auto) 38.6 (20-40) % [place]ham % (Auto) 8.4 (2-11) % Eos % (Auto) 2.1 (0-4) % Baso % (Auto) 0.5 (0-2) % Lymph # (Auto) 5.4 H (1.2-4.9) X10*3/uL [place]ham # (Auto) 1.2 (0.1-1.2) X10*3/uL Eos # (Auto) 0.3 (0.0-0.4) X10*3/uL Baso # (Auto) 0.1 (0.0-0.2) X10*3/uL Abs Immat Gran (auto) 0.10 H (0.00-0.03) X10*3/uL Absolute Neuts (auto) 7.0 (2.0-8.3) x10*3/uL Absolute Nucleated RBC 0.000 (0.0-0.012) X10*3/uL Nucleated RBC % (auto) 0.0 (0.0-0.2) /100WBC Smear Tech's Comments VERIFIED Sodium 139 (135-145) mmol/L Potassium 3.9 (3.3-5.1) mmol/L Chloride 108 (96-108) mmol/L Carbon Dioxide 25 (22-29) mmol/L Anion Gap 10 L (12-20) BUN 14 (9-16) mg/dL Creatinine 0.86 (0.5-1.4) mg/dL Estim Creat Clear Calc 143.1 Estimated GFR > 60 Random Glucose 112 (60-115) mg/dL Calcium 9.2 (8.4-10.2) mg/dL Magnesium 2.0 (1.6-2.6) mg/dL Total Bilirubin 0.2 (0.0-1.0) mg/dL Direct Bilirubin < 0.2 (0.0-0.5) mg/dL AST 35 H (5-31) U/L ALT 50 H (0-31) U/L Alkaline Phosphatase 90 (39-117) U/L Troponin I High Sens < 2.7 (<3.5-17.0) ng/L Total Protein 7.6 (6.5-8.0) g/dL Albumin 4.4 (3.5-5.0) g/dL Lipase 16 (8-78) U/L Beta HCG, Quant < 2 mIU/mL C. difficile Tox B Gene NEGATIVE (Negative) Independent Interpretation I performed an independent interpretation of an: EKG Radiology Impression Discussion of test interpretation with radiology: I have reviewed the radiologist's reading. Discharge Plan Discharge Clinical Impression: Chronic chest pain Patient Disposition: Home, Self-Care Instructions: Chronic Pain (ED) Additional Instructions: All of your screening labs including a cardiac enzymes were normal. There were no concerning changes on the EKG in the chest x-ray is clear. Keep your follow up with your passenger service representative, keep your pending follow up with your loftsman. We attempted to collect stool studies, you were unable to give a sample. This is something they can evaluate as well. Interventions: ED Discharge Assessment Last Done: 02/03/25 01:32 Discharge Date/Time: 02/03/25 01:33 Print Language: Chinese
[2025-02-03 01:28] VITALS: BP 106/72; PULSE 79; RESP 20; TEMP 36.6; O2SAT 99
[2025-02-03 01:31] LABS: CDiff Gene PCR NEGATIVE (Negative)
[2025-02-03 01:32] VITALS: BP 106/72; PULSE 79; RESP 20; TEMP 36.6; O2SAT 99
[2025-02-03 09:18] LABS: E. coli EAEC Not Detected (Not Detect.); E. coli EPEC Not Detected (Not Detect.); E. coli ETEC Not Detected (Not Detect.); E. coli STEC Not Detected (Not Detect.); Shigella sp./EIEC Not Detected (Not Detect.)
== END 2025-02-03 01:33 | disposition home or self-care (01) ==
PROVIDERS: Emergency Provider Emergency Medicine; PCP Family Medicine
DX: R07.89 Other chest pain (principal); R06.02 Shortness of breath; R11.2 Nausea with vomiting, unspecified; R10.23 Pelvic and perineal pain bilateral; Z79.899 Other long term (current) drug therapy
CPT/HCPCS: 36415; 71045; 80053; 82248; 83690; 83735; 84484; 84702; 85025; 87493; 87507; 93005; 99283; 99285

== ENCOUNTER → 2025-02-02 21:32 | Outpatient (BNV) | payer OTHER, SELFPAY | PROVIDERS: Emergency Provider Emergency Medicine; PCP Family Medicine; Visit Provider Internal Medicine Cardiovascular Disease | DX: R07.9 Chest pain, unspecified (principal) | CPT/HCPCS: 93010 ==

== ENCOUNTER → 2025-02-03 00:01 | Outpatient (BNV) | payer OTHER, SELFPAY | PROVIDERS: PCP Family Medicine; Visit Provider Student in an Organized Health Care Education/Training Program | DX: R07.9 Chest pain, unspecified (principal) | CPT/HCPCS: 71045 ==

== ENCOUNTER 2025-03-12 00:46 | Emergency (ER) | payer OTHER, SELFPAY ==
[2025-03-12 00:50] VITALS: BP 121/60; PULSE 84; RESP 20; TEMP 36.7; O2SAT 99; BMI 43.8
[2025-03-12 01:33] VITALS: BP 118/82; PULSE 86; RESP 16; TEMP 36.9; O2SAT 98
[2025-03-12 01:34] LABS: Hematocrit 36.3 % (37.0-47.0); Hemoglobin 11.8 g/dl (12.0-16.0); Imm Gran Abs Auto 0.06 X10*3/uL (0.00-0.03); Imm Gran Pct Auto 0.5 % (0.0-0.4); Lymphocytes Absolute Auto 4.4 X10*3/uL (1.2-4.9); MANUAL DIFF FLAG NO; Mean Corpuscular HGB Conc 32.5 g/dl (31.0-35.0); Mean Corpuscular Hemoglobin 27.3 pg (27.0-33.0); Mean Corpuscular Volume 84.0 fL (80.0-98.0); NRBC Abs Auto 0.000 X10*3/uL (0.0-0.012); NRBC Pct Auto 0.0 /100WBC (0.0-0.2); Platelet Count 350 X10*3/uL (160-400); Red Blood Count 4.32 X10*6/uL (4.20-5.50); White Blood Count 12.2 X10*3/uL (4.8-10.8)
[2025-03-12 01:50] LABS: Alanine Aminotransferase 48 U/L (0-31); Albumin Level 4.0 g/dL (3.5-5.0); Alkaline Phosphatase 76 U/L (39-117); Anion Gap 11 (12-20); Aspartate Amino Transferase 39 U/L (5-31); Blood Urea Nitrogen 14 mg/dL (9-16); Calcium 9.0 mg/dL (8.4-10.2); Carbon Dioxide 26 mmol/L (22-29); Chloride 106 mmol/L (96-108); Creatinine Clr Calc Pharmacy 132.0; Estimated Glomerular Filt Rate > 60; Lipase 19 U/L (8-78); Potassium 3.8 mmol/L (3.3-5.1); Sodium 139 mmol/L (135-145); Total Protein 7.0 g/dL (6.5-8.0)
--- NOTE | 2025-03-12 03:38 | ED.ABDPAIN ---
HPI - Abdominal Pain General Chief Complaint: Abdominal Pain Stated Complaint: severe abd pain Time Seen by Provider: 03/12/25 03:37 Source: patient Mode of arrival: ambulatory Limitations: no limitations History of Present Illness ED Provider: Nabil REEDER HPI narrative: The patient is a 25-year-old female with a history of GERD, cholecystectomy this past November, PVCs, bipolar disorder, anxiety, depression, and neurocardiogenic syncope, presenting to the ED for evaluation of left upper quadrant abdominal pain. Patient reports pain began Tuesday evening after eating with her mother, patient reports she shared the same meal with her mother and her mother was without symptoms. Patient reports since that time she has been experiencing severe left upper quadrant abdominal pain described as a dull but strong pain without radiation. The patient reports pain waxes and wanes, reports associated mild nausea, however denies associated fever/chills, vomiting, diarrhea, chest pain, shortness of breath, hematochezia, melena, dysuria, hematuria, or urinary symptoms. The patient reports she was seen at [facility] on Tuesday for evaluation of this pain, patient reports an abdominal CT was performed which revealed renal cysts, but no other acute abnormality. The patient reports she was treated with Toradol and nausea medication, and discharged home. Patient reports pain returned around 21:00 at which time she took Tylenol without significant change in symptoms. When symptoms increased upon waking overnight, the patient presented to the ED for evaluation. The patient reports she has been recently treated with a 2 week course of omeprazole which she finished approximately 1-2 weeks ago. The patient reports she is currently taking Pepcid b.i.d., denies other antacids. The patient reports a history of endometriosis, reports she is currently menstruating. Related Data Previous Rx's ?Medication ?Instructions ?Recorded sucralfate 1 gram tablet (Carafate) 1 g PO BID #30 tabs 03/12/25 Allergies Allergy/AdvReac Type Severity Reaction Status Date / Time No Known Allergies Allergy Verified 03/12/25 00:53 Review of Systems Review of Systems Yes all other systems are reviewed and are negative [facility] Social History Social History Alcohol intake: current Alcohol intake frequency: holidays/special occasions only Alcohol type: beer, wine and hard liquor Smoked in Last 30 Days: No Substance Use Type: Marijuana Advance Directives: No Advance Directives Information Provided: Yes Do you have a plan to hurt others: No Plan Patient : No Physical Exam ED Vital Signs: Vital Signs - 24 hr 03/12/25 00:50 03/12/25 01:33 03/12/25 04:31 Temperature 98.0 F 98.4 F 98.2 F Pulse Rate 84 86 74 Respiratory Rate 20 16 16 Blood Pressure 121/60 118/82 119/70 Pulse Oximetry 99 98 100 Oxygen Delivery Method Room Air Room Air Room Air BMI result Body Mass Index 43.8 CONSTITUTIONAL: The patient appears non-toxic, well nourished and in no acute distress. Vital signs as documented. HEAD: Atraumatic, normocephalic. EYES: EOMs grossly intact, pupils equal, conjunctiva clear, no exudate. ENT: Nares patent, no discharge. Airway patent, no audible stridor, visible mucosa is pink and moist without noted lesions. NECK: Trachea is midline, no obvious masses or gross abnormalities. CHEST: Symmetric movement, normal appearance. LUNGS: LS present and CTAB, no w/r/r. Non-labored work of breathing. CARDIAC: Regular Rhythm, S1/S2 appreciated, no murmurs, rubs or gallops. ABDOMEN: Abdomen soft x4 quadrants, mild tenderness of the left upper quadrant, negative rebound, no palpable masses or organomegaly. : Deferred. EXTREMITIES: Normal tone, moves all extremities spontaneously without reported pain. No obvious acute injury or deformity noted. NEURO: Alert and oriented x3, CN II-XII appear grossly intact. Cerebellar Functioning grossly intact. No obvious sensory or motor deficits. Speech clear and appropriate. PSYCH: normal affect, appropriate eye contact, fluid speech, with appropriate response to questioning. No reported suicidality or homicidality. SKIN: Warm, dry, color appropriate, normal turgor. No rashes noted. Medical Decision Making Medical Decision Making MDM Narrative: 4:02 AM 03/12/2025 (Truong REEDER): The patient is a 25-year-old female with a history of GERD, cholecystectomy this past November, PVCs, bipolar disorder, anxiety, depression, and neurocardiogenic syncope, presenting to the ED for evaluation of left upper quadrant abdominal pain. Patient reports pain began Tuesday evening after eating with her mother, patient reports she shared the same meal with her mother and her mother was without symptoms. Patient reports since that time she has been experiencing severe left upper quadrant abdominal pain described as a dull but strong pain without radiation. The patient reports pain waxes and wanes, reports associated mild nausea, however denies associated fever/chills, vomiting, diarrhea, chest pain, shortness of breath, hematochezia, melena, dysuria, hematuria, or urinary symptoms. The patient reports she was seen at [facility] on Tuesday for evaluation of this pain, patient reports an abdominal CT was performed which revealed renal cysts, but no other acute abnormality. The patient reports she was treated with Toradol and nausea medication, and discharged home. Patient reports pain returned around 21:00 at which time she took Tylenol without significant change in symptoms. When symptoms increased upon waking overnight, the patient presented to the ED for evaluation. The patient reports she has been recently treated with a 2 week course of omeprazole which she finished approximately 1-2 weeks ago. The patient reports she is currently taking Pepcid b.i.d., denies other antacids. The patient reports a history of endometriosis, reports she is currently menstruating. On exam the patient has moderate tenderness of the left upper quadrant, negative rebound, otherwise nontender. The patient's laboratory evaluation is largely reassuring, mild leukocytosis of 12.2, no significant anemia, no electrolyte abnormality or MARTHA. The patient's LFTs are largely unremarkable, mild transaminitis, lipase is normal. Patient is presentation of symptoms and left upper quadrant tenderness may be related to gastritis versus a duodenal ulcer. We will treat with GI cocktail and reassess for improvement. If patient experiences improvement with GI cocktail we will add Carafate to her current Pepcid treatment. 5:40 AM 03/12/2025 (Truong REEDER): Patient reports significant improvement in symptoms following GI cocktail, indicating likely gastrointestinal source of inflammation. Patient will be discharged with Carafate as described above, and instructions to follow up with PCP for GI referral. Admission/Observation Consideration of admission/observation: Escalation of care including admission/observation considered Lab Data MDM Lab Attestation statement: I reviewed the patient's lab results. 03/12/25 01:28 03/12/25 01:28 Labs: Lab Results 03/12/25 Range/Units 01:28 WBC 12.2 H (4.8-10.8) X10*3/uL RBC 4.32 (4.20-5.50) X10*6/uL Hgb 11.8 L (12.0-16.0) g/dl Hct 36.3 L (37.0-47.0) % MCV 84.0 (80.0-98.0) fL MCH 27.3 (27.0-33.0) pg MCHC 32.5 (31.0-35.0) g/dl RDW 13.4 (11.0-16.0) % Plt Count 350 (160-400) X10*3/uL MPV 10.0 (9.4-12.3) fL Immature Gran % (Auto) 0.5 H (0.0-0.4) % Neut % (Auto) 52.0 (45-73) % Lymph % (Auto) 36.3 (20-40) % [place] % (Auto) 8.6 (2-11) % Eos % (Auto) 2.1 (0-4) % Baso % (Auto) 0.5 (0-2) % Lymph # (Auto) 4.4 (1.2-4.9) X10*3/uL [place] # (Auto) 1.0 (0.1-1.2) X10*3/uL Eos # (Auto) 0.3 (0.0-0.4) X10*3/uL Baso # (Auto) 0.1 (0.0-0.2) X10*3/uL Abs Immat Gran (auto) 0.06 H (0.00-0.03) X10*3/uL Absolute Neuts (auto) 6.3 (2.0-8.3) x10*3/uL Absolute Nucleated RBC 0.000 (0.0-0.012) X10*3/uL Nucleated RBC % (auto) 0.0 (0.0-0.2) /100WBC Sodium 139 (135-145) mmol/L Potassium 3.8 (3.3-5.1) mmol/L Chloride 106 (96-108) mmol/L Carbon Dioxide 26 (22-29) mmol/L Anion Gap 11 L (12-20) BUN 14 (9-16) mg/dL Creatinine 0.91 (0.5-1.4) mg/dL Estim Creat Clear Calc 132.0 Estimated GFR > 60 Random Glucose 101 (60-115) mg/dL Calcium 9.0 (8.4-10.2) mg/dL Total Bilirubin 0.1 (0.0-1.0) mg/dL AST 39 H (5-31) U/L ALT 48 H (0-31) U/L Alkaline Phosphatase 76 (39-117) U/L Total Protein 7.0 (6.5-8.0) g/dL Albumin 4.0 (3.5-5.0) g/dL Lipase 19 (8-78) U/L Medications Administered Discontinued Medications Generic Name Dose Route Start Last Admin Trade Name Freq PRN Reason Stop Dose Admin Al Hydroxide/Mg Hydroxide 30 ml 03/12/25 04:01 03/12/25 04:33 Magnesium Hydrox/Alum Hydrox 30 Ml Oral.Susp PO 03/12/25 04:02 30 ml ONCE ONE Administration Famotidine 20 mg 03/12/25 04:01 03/12/25 04:32 Famotidine 20 Mg Tablet PO 03/12/25 04:02 20 mg ONCE ONE Administration Lidocaine HCl 15 ml 03/12/25 04:01 03/12/25 04:33 Lidocaine Hcl Viscous 2 % 15 Ml Solution PO 03/12/25 04:02 15 ml ONCE ONE Administration Discharge Plan Discharge Clinical Impression: Peptic ulcer disease Patient Disposition: Home, Self-Care Instructions: Peptic Ulcer (ED), Diet for Stomach Ulcers and Gastritis (ED) Additional Instructions: Thank you for choosing [facility]'s Emergency Department for your care today. Thankfully your laboratory evaluation , vital signs, and exam today are all reassuring. At this time there is no indication for admission to the hospital or continued ED observation, and it is safe to discharge you home. Your symptoms appear consistent with peptic ulcer disease, and ulcerative condition of your stomach and possibly the 1st portion of your small intestine, known as the duodenum. The fact that your symptoms improved following a GI cocktail supports this diagnosis. Please begin taking Carafate as directed in addition to your current Pepcid treatment. Please read the attached information regarding diet changes to reduce the severity and frequency of gastric ulcers. Please stay well hydrated and get plenty of rest. Please follow up with your primary care physician for re-evaluation, GI referral as deemed appropriate, additional management of your symptoms, and continued preventative care. If you do not have a primary care physician, please call the [facility] at [phone] to establish a new primary care physician. While waiting to establish your new primary care physician, you can call our Walk[facility]in [facility] at [phone] for non-emergency needs. Please return to the emergency department if you develop a severe or sudden change in your symptoms, a fever over 100.4 that does not improve with Tylenol or Ibuprofen, recurrent vomiting, or any other new or worsening symptoms or concerns. Prescriptions: New sucralfate [Carafate] 1 gram tablet 1 g PO BID Qty: 30 0RF Referrals: Justino Santos DO [Primary Care Provider, Internal Medicine] Clinical Impression: Peptic ulcer disease Print Language: Malagasy
[2025-03-12 04:31] VITALS: BP 119/70; PULSE 74; RESP 16; TEMP 36.8; O2SAT 100
[2025-03-12] MEDS: Lidocaine HCl Viscous 2 % 15 ML SOLUTION PO (04:33)
[2025-03-12] MEDS: Magnesium Hydrox/Alum Hydrox 30 ML ORAL.SUSP PO (04:33)
[2025-03-12 06:05] VITALS: BP 119/70; PULSE 74; RESP 16; TEMP 36.8; O2SAT 100
== END 2025-03-12 06:05 | disposition home or self-care (01) ==
PROVIDERS: Emergency Provider Emergency Medicine; PCP Family Medicine
DX: K27.9 Peptic ulcer, site unspecified, unspecified as acute or chronic, without hemorrhage or perforation (principal); Z90.49 Acquired absence of other specified parts of digestive tract
CPT/HCPCS: 36415; 80053; 83690; 85025; 99284

== ENCOUNTER 2025-03-18 05:35 | Emergency (ER) | payer OTHER, SELFPAY ==
--- NOTE | ~2025-03-18 | CT_ITS ---
EXAMINATION: CT ABDOMEN PELVIS WITH IV CONTRAST HISTORY: left side abdominal pain COMPARISON: There are no prior studies for available comparison. TECHNIQUE: CT scan of the abdomen and pelvis was performed following administration of 85 mL Omnipaque 350 using standard departmental protocol. Coronal and sagittal reformatted images were generated and reviewed. Oral contrast material was not administered at the request of the referring physician. This CT exam was performed with one or more of the following dose reduction techniques: automated exposure control, adjustment of the mA and/or kV according to patient size, use of iterative reconstruction technique. DLP: 1527 mGy-cm FINDINGS: LOWER CHEST: The visualized lung bases are clear. There is no pleural effusion. CARDIOVASCULATURE: The heart is normal in size. There is no pericardial effusion. LIVER: The liver is normal in size and contour. No liver mass is identified. The hepatic and portal veins are patent. GALLBLADDER / BILE DUCTS: The gallbladder is surgically absent. There is no intra or extrahepatic biliary ductal dilatation. SPLEEN: The spleen is normal in size. No focal splenic lesion is identified. PANCREAS: The pancreas is unremarkable in appearance. ADRENAL GLANDS: Within normal limits. KIDNEYS/RETROPERITONEUM: No renal calculi are identified. There is no hydronephrosis. No renal masses are identified. LYMPH NODES: No abdominal or pelvic lymphadenopathy. VASCULATURE: The abdominal aorta is normal in caliber. MESENTERY/PERITONEUM: No free fluid. No masses. There is no free intraperitoneal gas. STOMACH: The stomach is collapsed, limiting evaluation. SMALL BOWEL: The small bowel is normal in caliber. COLON: There is a moderate amount of stool throughout the colon. APPENDIX: Normal. URINARY BLADDER/PELVIC ORGANS: The urinary bladder is unremarkable. The uterus and ovaries are unremarkable. BONES / SOFT TISSUES: No suspicious bony or soft tissue abnormalities. CT/CT abdomen pelvis w IV con IMPRESSION: Moderate amount of stool throughout the colon. Otherwise unremarkable contrast-enhanced CT of the abdomen and pelvis. Electronically signed by: Ever Lowe MD 03/18/2025 09:38 AM [facility]
[2025-03-18 05:53] VITALS: BP 119/69; PULSE 75; RESP 19; TEMP 36.8; O2SAT 98; BMI 47.8
--- OUTSIDE RECORDS SUMMARY | 2025-03-18 06:12 | XMS_ITS | Clinical Summary ---
Author Organization [facility] Address [address] [place] [address] Care Team Providers Care Welder Assembler Name Role Phone Justino Santos MD Primary Care Provider [phone] Allergies Active Allergy Reactions Criticality Noted Date [...] st Contact Info) Description 05/15/2025 Hospital Encounter [facility] Operating Room [address] [place] [address] Sherri Balderas MD [address] [place] [address] Scheduled Procedures Name Priority Associated Diagnoses Date/Ti [...] Social Drivers of Health Annual Screening 04/25/2024 Influenza Vaccine (#1) 2024 02/07/2023 COVID-19 Vaccine (1 - 2024- season) 2024 Chlamydia Screening 07/09/2025 07/09/2024 DTaP,Tdap,and Td Vaccines (2 - Td or Tdap) 12/20/2032 12/20/2022 Pneumococcal Vaccine: Pediat sandrine (0-5 Years) and At-Risk Patients (6-50 Years) Completed 11/03/2023 Goals Goal Patient Goal Type Associated Problems Recent Progress Patient-Stated? Author Autogenera vale Goal Care Plan Autogenerated Problem No Meghan, Amira Additional Health Concerns Active Problems Noted Date Diagnosed Date Autogenerated Problem 10/01/2024 Care Teams Welder Assembler Relationship Specialty Start Date End Date Justino Santos MD [address] [place] [id number] PCP - General Family Medicine 04/04/24
--- OUTSIDE RECORDS SUMMARY | 2025-03-18 06:12 | XMS_ITS | Clinical Summary ---
Author Organization [facility] Address [address] [place] [address] Phone Care Team Providers Care Robotics Technologist Name Role Phone Physician, No Pcp Primary [...] Health Screening 08/14/2024 COVID-19 Vaccine ( - 2024-2 6 season) 2024 Influenza Vaccine (#1) 2024 02/07/2023 [...] to complete this topic Insurance Care Teams Robotics Technologist Relationship Specialty Start Date End Date Physician, No Pcp PCP - General 09/03/24
--- NOTE | 2025-03-18 06:39 | ED.ABDPAIN ---
HPI - Abdominal Pain General Chief Complaint: Abdominal Pain Stated Complaint: Stomach Pain Time Seen by Provider: 03/18/25 06:06 Source: patient Mode of arrival: ambulatory Limitations: no limitations History of Present Illness HPI narrative: This is 25 years old the patient presented with a chief complaint of abdominal pain is which is localized in the left upper quadrant without radiation she has no nausea no vomiting she was evaluated in this emergency department on March 12 diagnosed with possible peptic ulcer disease sent home on sucralfate. She had also prior evaluation at [facility] CT done was reported with a left renal cyst. Patient has history of bipolar disorder/anxiety she had a prior cholecystectomy MD elicited complaint: abdominal pain Onset (ago): day(s) Pain Consistency: constant Location: LUQ Severity: moderate Quality: cramping Radiation: none Migration to: no migration Exacerbating factors: nothing Relieving factors: nothing Associated symptoms: denies other symptoms Related Data Previous Rx's ?Medication ?Instructions ?Recorded sucralfate 1 gram tablet (Carafate) 1 g PO BID #30 tabs 03/12/25 Allergies Allergy/AdvReac Type Severity Reaction Status Date / Time No Known Allergies Allergy Verified 03/18/25 05:55 Review of Systems Review of Systems Yes all other systems are reviewed and are negative Reports system reviewed and no additional complaints, except as documented Cardiovascular: Reports no additional cardiovascular complaints [facility] Past Medical History [facility] Narrative: Bipolar disorder, anxiety Social History Social History Alcohol intake: current Alcohol intake frequency: holidays/special occasions only Alcohol type: beer, wine and hard liquor Substance Use Type: Marijuana Advance Directives: No Advance Directives Information Provided: No Do you have a plan to hurt others: No Plan Physical Exam ED Exam Exam: She looks well she is not toxic-appearing smiling during the exam Vital Signs: Vital Signs - 24 hr 03/18/25 05:53 03/18/25 08:32 Temperature 98.2 F 97.9 F Pulse Rate 75 61 Respiratory Rate 19 18 Blood Pressure 119/69 113/71 Pulse Oximetry 98 99 Oxygen Delivery Method Room Air Room Air BMI result Body Mass Index 47.8 Vital signs were reviewed the normal she is afebrile normotensive Const General: cooperative and healthy appearing Nutritional Appearance: well nourished Orientation/consciousness: patient oriented x3 HENMT Head: Yes normal to inspection Ears: hearing grossly normal bilaterally General nose exam: Normal external nose present Face and sinus: Yes normal facial exam Mouth: Normal oral and palatal mucosa present Throat: Yes posterior oropharynx normal Neck Neck: Yes normal visual inspection Chest Chest palpation & inspection: normal inspection of the chest Resp Effort & Inspection: normal respiratory effort Auscultation: clear to auscultation bilaterally Cardio Jugular venous distension: no JVD Rate: regular rate Rhythm: regular rhythm GI Inspection: Yes normal to inspection Palpation (GI): Soft to palpation, not firm, nontender and no guarding Skin General skin exam: no rashes or lesions noted and elasticity normal Lesions: no lesions Rashes: no rashes Neuro General: patient oriented x3 Course Reevaluation(s) Reevaluation #1: CT scan of abdomen and pelvis showed no acute pathology labs are normal I think we could discharge the patient home at this point she can follow-up with the primary care physician Time: 11:04 Medical Decision Making Medical Decision Making [facility] Narrative: Patient is here complaining of left upper quadrant abdominal pain and this is the 2nd trip to this emergency department same complaint we will start with blood work UA Differential Diagnosis Differential Diagnoses: The differential diagnosis associated with the presentation includes Gastritis like peptic ulcer disease/colitis /diverticulitis Admission/Observation Consideration of admission/observation: Escalation of care including admission/observation considered Lab Data [facility] Lab Attestation statement: I reviewed the patient's lab results. 03/18/25 06:59 03/18/25 06:59 Labs: Lab Results 03/18/25 Range/Units 06:59 WBC 8.0 (4.8-10.8) X10*3/uL RBC 4.25 (4.20-5.50) X10*6/uL Hgb 11.7 L (12.0-16.0) g/dl Hct 36.1 L (37.0-47.0) % MCV 84.9 (80.0-98.0) fL MCH 27.5 (27.0-33.0) pg MCHC 32.4 (31.0-35.0) g/dl RDW 13.6 (11.0-16.0) % Plt Count 328 (160-400) X10*3/uL MPV 10.1 (9.4-12.3) fL Immature Gran % (Auto) 0.4 (0.0-0.4) % Neut % (Auto) 50.8 (45-73) % Lymph % (Auto) 36.5 (20-40) % [place] % (Auto) 8.7 (2-11) % Eos % (Auto) 3.0 (0-4) % Baso % (Auto) 0.6 (0-2) % Lymph # (Auto) 2.9 (1.2-4.9) X10*3/uL [place] # (Auto) 0.7 (0.1-1.2) X10*3/uL Eos # (Auto) 0.2 (0.0-0.4) X10*3/uL Baso # (Auto) 0.1 (0.0-0.2) X10*3/uL Abs Immat Gran (auto) 0.03 (0.00-0.03) X10*3/uL Absolute Neuts (auto) 4.1 (2.0-8.3) x10*3/uL Absolute Nucleated RBC 0.000 (0.0-0.012) X10*3/uL Nucleated RBC % (auto) 0.0 (0.0-0.2) /100WBC Sodium 141 (135-145) mmol/L Potassium 4.1 (3.3-5.1) mmol/L Chloride 109 H (96-108) mmol/L Carbon Dioxide 24 (22-29) mmol/L Anion Gap 12 (12-20) BUN 14 (9-16) mg/dL Creatinine 0.84 (0.5-1.4) mg/dL Estim Creat Clear Calc 150.5 Estimated GFR > 60 Random Glucose 105 (60-115) mg/dL Calcium 8.8 (8.4-10.2) mg/dL Total Bilirubin 0.3 (0.0-1.0) mg/dL AST 27 (5-31) U/L ALT 30 (0-31) U/L Alkaline Phosphatase 72 (39-117) U/L Total Protein 7.1 (6.5-8.0) g/dL Albumin 4.2 (3.5-5.0) g/dL Lipase 13 (8-78) U/L Beta HCG, Quant < 2 mIU/mL Urine Color Yellow Urine Appearance Cloudy Urine pH 6.0 (5.0-9.0) Ur Specific [place] >= 1.030 H (1.005-1.025) Urine Protein Trace (Neg-Trace) mg/dL Urine Glucose (UA) Negative (Negative) mg/dL Urine Ketones Trace (Negative) mg/dL Urine Blood Negative (Negative) Urine Nitrite Negative (Negative) Ur Leukocyte Esterase Trace H (Negative) Urine RBC 0-2 (0-2) /HPF Urine WBC 0-5 (0-5) /HPF Ur Squamous Epith Cells 3-5 (0-2) /HPF Urine Bacteria Trace (None Seen) Hyaline Casts 0-2 (0-2) /LPF Independent Interpretation I performed an independent interpretation of an: CT Scan (NAD) Radiology Impression Discussion of test interpretation with radiology: I have reviewed the radiologist's reading. Radiologist Impression: LYMPH NODES: No abdominal or pelvic lymphadenopathy. VASCULATURE: The abdominal aorta is normal in caliber. MESENTERY/PERITONEUM: No free fluid. No masses. There is no free intraperitoneal gas. STOMACH: The stomach is collapsed, limiting evaluation. SMALL BOWEL: The small bowel is normal in caliber. COLON: There is a moderate amount of stool throughout the colon. APPENDIX: Normal. URINARY BLADDER/PELVIC ORGANS: The urinary bladder is unremarkable. The uterus and ovaries are unremarkable. BONES / SOFT TISSUES: No suspicious bony or soft tissue abnormalities. CT/CT abdomen pelvis w IV con IMPRESSION: Moderate amount of stool throughout the colon. Otherwise unremarkable contrast-enhanced CT of the abdomen and pelvis. Electronically signed by: Ever Lowe MD 03/18/2025 09:38 AM [facility] Medications Administered Discontinued Medications Generic Name Dose Route Start Last Admin Trade Name Freq PRN Reason Stop Dose Admin Iohexol 100 ml 03/18/25 09:24 03/18/25 09:25 Iohexol 350 Mg/Ml 100 Ml Infus..Btl IV 03/18/25 09:25 100 ml ONCE ONE Administration Discharge Plan Discharge Clinical Impression: Abdominal pain Qualifiers: Abdominal location: generalized Qualified Code(s): R10.84 - Generalized abdominal pain Patient Disposition: Home, Self-Care Instructions: Abdominal Pain (ED) Additional Instructions: Follow-up with your primary care physician call and make an appointment your blood work was essentially normal with a CAT scan of the was very reassuring Prescriptions: No Action sucralfate [Carafate] 1 gram tablet 1 g PO BID Qty: 30 0RF Referrals: Justino Santos DO [Primary Care Provider, Internal Medicine] - 03/27/25 Stand Alone Forms: Work/School Release Print Language: Ugandan
[2025-03-18 07:11] LABS: MANUAL DIFF FLAG NO
[2025-03-18 07:19] LABS: Appearance Urine Cloudy; Glucose Urine UA Negative (Negative); PH 6.0 (5.0-9.0); Specific Gravity - Urine >= 1.030 (1.005-1.025); UMIC TRIGGER UACC YES
[2025-03-18 07:31] LABS: Hematocrit 36.1 % (37.0-47.0); Hemoglobin 11.7 g/dl (12.0-16.0); Imm Gran Abs Auto 0.03 X10*3/uL (0.00-0.03); Imm Gran Pct Auto 0.4 % (0.0-0.4); Lymphocytes Absolute Auto 2.9 X10*3/uL (1.2-4.9); Mean Corpuscular HGB Conc 32.4 g/dl (31.0-35.0); Mean Corpuscular Hemoglobin 27.5 pg (27.0-33.0); Mean Corpuscular Volume 84.9 fL (80.0-98.0); NRBC Abs Auto 0.000 X10*3/uL (0.0-0.012); NRBC Pct Auto 0.0 /100WBC (0.0-0.2); Platelet Count 328 X10*3/uL (160-400); Red Blood Count 4.25 X10*6/uL (4.20-5.50); White Blood Count 8.0 X10*3/uL (4.8-10.8)
[2025-03-18 07:34] LABS: Alanine Aminotransferase 30 U/L (0-31); Albumin Level 4.2 g/dL (3.5-5.0); Alkaline Phosphatase 72 U/L (39-117); Anion Gap 12 (12-20); Aspartate Amino Transferase 27 U/L (5-31); Blood Urea Nitrogen 14 mg/dL (9-16); Calcium 8.8 mg/dL (8.4-10.2); Carbon Dioxide 24 mmol/L (22-29); Chloride 109 mmol/L (96-108); Creatinine Clr Calc Pharmacy 150.5; Estimated Glomerular Filt Rate > 60; Lipase 13 U/L (8-78); Potassium 4.1 mmol/L (3.3-5.1); Sodium 141 mmol/L (135-145); Total Protein 7.1 g/dL (6.5-8.0)
[2025-03-18 08:32] VITALS: BP 113/71; PULSE 61; RESP 18; TEMP 36.6; O2SAT 99
[2025-03-18] MEDS: iohexoL 350 MG/ML 100 ML INFUS..BTL IV (09:25)
[2025-03-18 11:19] VITALS: BP 109/69; PULSE 70; RESP 18; TEMP 36.6; O2SAT 99
== END 2025-03-18 11:20 | disposition home or self-care (01) ==
PROVIDERS: Emergency Provider Emergency Medicine; PCP Family Medicine
DX: R10.84 Generalized abdominal pain (principal); F41.9 Anxiety disorder, unspecified
CPT/HCPCS: 36415; 74177; 80053; 81001; 83690; 84702; 85025; 99284; 99285; Q9967

== ENCOUNTER → 2025-03-18 07:43 | Outpatient (BNV) | payer OTHER, SELFPAY | PROVIDERS: Emergency Provider Emergency Medicine; PCP Family Medicine; Visit Provider Radiology Diagnostic Radiology | DX: R10.9 Unspecified abdominal pain (principal) | CPT/HCPCS: 74177 ==

== ENCOUNTER 2025-04-19 00:33 | Emergency (ER) | payer OTHER, SELFPAY ==
--- OUTSIDE RECORDS SUMMARY | 2025-04-08 03:00 | XMS_ITS ---
[facility] [address] [place] [address] Care Team Providers Care Director Of Cardiology Name Role Phone LISA FRASER Primary Care Provider Unavailab Shantelle Alfaro Unavailable [phone] REASON FOR VISIT [facility]SC EGD FOR REFLUX GASTRITIS, EPIGASTRIC PAIN PCP VARINDER GREENBERG [facility] Encounters Encounter Location Date Provider Diagnosis [address] [address] 04/08/2025 Shantelle Martínez Plan Of Treatment No Information Progress Notes * DONTRELL SAUNDERSILDOB:[birth year] (25 yo F)Acc No.[id number]:04/08/2025 Progress Notes Patient: FIONA GREENWOOD Provider: Aliyah Martínez MD :[id number] A ge:25 Y S ex:Female Date:04/08/2025 Address:[address] [place] [id number] Pcp:LISA FRASER Subjective: * Chief Complaints: * 1 . [facility]SC EGD FOR REFLUX GASTRITIS, EPIGASTRIC PAIN PCP VARINDER GREENBERG [facility]. * Medical History: Objective: * Vitals: Assessment: Plan: * Treatment: * * Electronic signature of Ansley Martínez M.D. on 04/19/2025 at 02:48 AM EST Sign off status: Pending * Provider: Aliyah Martínez MD Date: 06/09/2024 Generated for Rci ng/Fajameel/eTransmitting on: 06/20/2024 02:48 AM EST
--- NOTE | 2025-04-19 | ECG_ITS ---
Test Reason : CHEST WALL PAIN Blood Pressure : */* mmHG Vent. Rate : 105 BPM Atrial Rate : 105 BPM P-R Int : 134 ms QRS Dur : 78 ms QT Int : 326 ms P-R-T Axes : 36 7 3 degrees QTcB Int : 430 ms Sinus tachycardia Minimal voltage criteria for LVH, may be normal variant ( R in aVL ) Borderline ECG When compared with ECG of 02-Feb-2025 21:32, No significant change was found Referred By: Generic ED Physician Electronically Signed By: MINNIE SARMIENTO MD
--- NOTE | ~2025-04-19 | XR_ITS ---
CLINICAL HISTORY: sob 2 view chest x-ray Comparison: Chest x-ray from 02/03/2025 Findings: Low lung volumes with mild bibasilar atelectasis/pneumonitis. No lobar consolidation. No pneumothorax or pleural effusion. Imaged mediastinum appears unchanged. Osseous structures are unremarkable for technique IMPRESSION: Mild bibasilar atelectasis/pneumonitis This document has been electronically signed by: Baldo Hickey MD on 04/19/2025 01:45:19
[2025-04-19 00:59] VITALS: BP 118/79; PULSE 124; RESP 20; TEMP 37.1; O2SAT 96; BMI 46.5
--- OUTSIDE RECORDS SUMMARY | 2025-04-19 02:48 | XMS_ITS | Data Portability ---
Author Organization [facility] Ashlyn Primary, [employer] Address [address] [place] [address] Assessment Encounter Date Assessment Date Assessment LastModified by Organization Details LastModified Time 01/07/2025 01/07/2025 Assessment - Neurological symptoms with [...] presyncope symptoms. Medication to be sent to [facility] pharmacy. - Advised to discontinue propranolol immediately [...] date of service of the encounter: 31 [email or web address] Not available 01/09/2025 21:17:22 01/17/2025 01/17/2025 Assessment [...] body myositis. MRI to be scheduled at [place], with office staff to contact early next [...] Appointments - Brain MRI with contrast at [place], scheduling pending (office to call early next week) - Neurology consultation with [facility] neurologist, scheduling pending (coordination next week) [email or web address] Not available 01/17/2025 13:06:42 02/01/2025 02/01/2025 Assessment - Right sided chest pain (suspected radiation from RUQ) and dysphagia likely gastroesophageal reflux disease (GERD), post-cholecystecto my, with atypical presentation. Differential diagnosis includes esophageal stricture, esophageal web, or persistent stone in pancreatic/common bile duct (pending further evaluation), unlikely pancreatitis although will consider. No evidence of cardiac etiology for chest pain at present - Neurological symptoms (tingling/numbness in fingers) of unclear etiology, to be further evaluated by neurology given family history of multiple sclerosis and myositis Plan - Initiate omeprazole 40 mg orally twice daily for 2 weeks, with the nighttime dose taken on an empty stomach and from dinner as much as possible. After 2 weeks, transition to omeprazole 40 mg once daily in the morning. - Use Pepcid as needed for symptomatic relief of nausea or dysphagia. - Adhere to a bland diet for the next 2 weeks, avoiding spicy foods, fried foods, dairy products, alcohol, caffeine, and chocolate. If consuming coffee, take it with food. Maintain adequate hydration with increased water intake. - Elevate the head during sleep with an extra pillow if symptoms worsen at night. - Monitor symptoms and send a portal message in 2 weeks to report any changes or improvement with the current regimen. - Seek immediate medical attention in the emergency department for severe left-sided chest pain, persistent dyspnea, syncope, vision changes, or sudden onset weakness. - Laboratory studies ordered include pancreatic enzymes (amylase, lipase) and a metabolic panel to assess liver and kidney function. - Will discuss the case with Dr. Santos to determine further diagnostic steps and possible referral; a nurse will contact to provide updates following this discussion. Update: Agreed with recommendation to refer to GI. - Consideration for barium swallow study to evaluate esophageal motility and structural abnormalities, and ERCP if indicated, pending further review and consultation. - At the upcoming cardiology appointment in February, present current symptoms for further evaluation and perspective. - At the upcoming neurology appointment, discuss family history of myositis and any relevant neurological symptoms. Prescription - Omeprazole 40 mg twice daily (morning and night on empty stomach) for 2 weeks, then transition to 40 mg once daily - Famotidine (Pepcid) as needed for dysphagia, nausea, or reflux symptoms Appointments - Follow-up appointment with cardiology nurse practitioner at [facility] in February 2025. The following time was spent on todays E/M encounter, including preparing for the visit, reviewing results, seeing the patient, and documentation on the date of service of the encounter: 42 mins Not available 02/11/2025 14:36:41 03/12/2025 03/12/2025 The following ti me was spent on todays E/M encounter, including preparing for the visit, reviewing results, seeing the patient, and documentation on the date of service of the encounter: 30 [id number] 15-29 minutes 96620 30-44 minutes 30484 45-59 minutes 51389 60-74 minutes 45900 10-19 minutes 78184 20-29 minutes 98279 30-39 minutes 15521 40-54 minutes Not available 03/12/2025 14:18:16 03/28/2025 03/28/2025 Assessment - Ongoing gastrointestinal condition requiring further evaluation with endoscopy scheduled for April 08, 2025 in [place]. Patient has been evaluated multiple times in the emergency department regarding this issue but is awaiting GI follow-up. 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 The paperwork will reflect the period of incapacity and ongoing medical evaluation. - Scan the completed PFML paperwork to the patient via the patient portal for review and signature. - After signature, send a picture of the signed PFML paperwork back to the office to ensure both parties have a completed copy. - If an extension of leave is required beyond April 15, 2025, notify the office to obtain a letter for continued absence. - If able, send copies of medical records from [facility] to the office to maintain comprehensive documentation. - Contact the office with any questions regarding the paperwork process or if additional documentation or letters are needed. Appointments - Endoscopy scheduled on April 08, 2025 through [facility] (via referral) During this encounter, 2 of the 3 elements of MDM addressed: (1)Number and Complexity of problems: 1 or more chronic illness with exacerbation, progression, or side effects of treatment (2)Amount/Complexi ty of data (need 1 out of 3 categories): Category 3: Discussion of management or test interpretation (3)Moderate Risk of morbidity from additional diagnostic testing or treatment (one needed): [email or web address] Not available 04/01/2025 06:35:47 Plan of Treatment Reminders Order Date Submit Date Provider Last Modified By Organization Details Last Modified Time Details Appointments None recorded . Lab CBC w/ auto diff 2024 025 [employer] [facility], [address], [place], [address], 08:07:08 amylase + lipase, serum 2024 025 NICOLE [facility], [address], [place], [address], 08:07:08 CMP, serum or plasma 2024 025 NICOLE [facility], [address], [place], [address], 08:07:[address] referral 2024 025 NICOLE [facility], [address] [facility] [address], [place], [address], 04:02:[address] referral 2024 025 [email or web address] Not available 08:11:17 neurolog ist referral - ? MS - MRI ordered and pending 2024 025 [facility], [address] [place] [address], [place], [address], 09:20:28 Procedures None recorded . Surgeries None recorded . Imaging MRI, brain, w/wo contrast 2024 025 [facility] ([facility]), [address] [place] [address], [address], 08:30:57 Medication Orders proprano lol 10 mg tablet 2024 025 carla [facility] #[id number], [address] [place], [address], 09:31:39 Patient TargetsNo targets recorded. 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 [email or web address] Not available 01/07/2025 10:00:08 01/17/2025 [id number] Based on our discussion, I have outlined the following instructions for you: - Keep taking your current medicines just as you have been. Do not make any changes. - After your brain scan (MRI) is done, you will be contacted to talk about the results and what to do next. Next appointment(s): - Brain MRI with contrast at [place], scheduling pending (office to call early next week) - Neurology consultation with [place] neurologist, scheduling pending (coordination next week) Thank you again for your visit, and we look forward to supporting you in your journey to better health. [email or web address] Not available 01/17/2025 13:06:44 Reason for Referral Neurologist Referral for Vas ovagal syncope ? MS - MRI ordered and pending Referring Physician: Justino Santos, Family Medicine, Encounter Date: 01/17/2025 Esthetics Instructor Referral for Dysphagia Referring Physician: Suzanne Tejada, Family Medicine, Encounter Date: 02/01/2025 Esthetics Instructor Referral for Bile-induced gastritis Referring Physician: Charleen Plata, Internal Medicine, Encounter Date: 03/12/2025 Results Created Date Observation Date Name Description Value Unit Range Abnormal Flag Note LastModifiedBy Organization Detail LastModifiedTime 02/02/2002/02/2025 CMP14 +EGFR glucose 103 mg/dL 70-99 above high normal Not Available [facility] ([facility]) [address], [place], [address], 02/02/2025 08:07:07 02/02/2002/02/2025 CMP14 +EGFR BUN 10 mg/dL 6-20 normal Not Available [facility] ([facility]) [address], [place], [address], 02/02/2025 08:07:07 02/02/2002/02/2025 CMP14 +EGFR creatinine 0.73 mg/dL 0.57-1 .00 normal Not Available [facility] ([facility]) [address] [place], [address], 02/02/2025 08:07:07 02/02/2002/02/2025 CMP14 +EGFR eGFR 118 mL/mi n/1.7 3 >59 normal Not Available [facility] ([facility]) [address] [place], [address], 02/02/2025 08:07:07 02/02/2002/02/2025 CMP14 +EGFR BUN/creatini ne ratio 14 9-23 normal Not Available [facility]) [address], [place], [address], 02/02/2025 08:07:07 02/02/2002/02/2025 CMP14 +EGFR sodium 138 mmol/ L 134-14 4 normal Not Available [facility] ([facility]) [address], [place], [address], 02/02/2025 08:07:07 02/02/2002/02/2025 CMP14 +EGFR potassium 4.7 mmol/ L 3.5-5. 2 normal Not Available [facility] ([facility]) [address] [place], [address], 02/02/2025 08:07:07 02/02/2002/02/2025 CMP14 +EGFR chloride 102 mmol/ L 96-106 normal Not Available [facility] ([facility]) [address] [place], [address], 02/02/2025 08:07:07 02/02/2002/02/2025 CMP14 +EGFR carbon dioxide, total 22 mmol/ L 20-29 normal Not Available [facility] ([facility]) [address] [place], [address], 02/02/2025 08:07:07 02/02/20 25 02/02/2025 CMP14 +EGFR calcium 9.7 mg/dL 8.7-10 .2 normal Not Available [facility] ([facility]) [address] [place], [address], 02/02/2025 08:07:07 02/02/2002/02/2025 CMP14 +EGFR protein, total 8.0 g/dL 6.0-8. 5 normal Not Available [facility] ([facility]) [address] [place], [address], 02/02/2025 08:07:07 02/02/2002/02/2025 CMP14 +EGFR albumin 4.6 g/dL 4.0-5. 0 normal Not Available [facility] ([facility]) [address] [place], [address], 02/02/2025 08:07:07 02/02/2002/02/2025 CMP14 +EGFR globulin, total 3.4 g/dL 1.5-4. 5 Not Available [facility] ([facility]) [address] [place], [address], 02/02/2025 08:07:07 02/02/2002/02/2025 CMP14 +EGFR bilirubin, total 0.4 mg/dL 0.0-1. 2 normal Not Available [facility] ([facility]) [address] [place], [address], 02/02/2025 08:07:07 02/02/2002/02/2025 CMP14 +EGFR alkaline phosphatase 102 IU/L 41-116 normal Not Available [facility] [address], [place], [address], 02/02/2025 08:07:07 02/02/2002/02/2025 CMP14 +EGFR AST (SGOT) 38 IU/L 0-40 normal Not Available [facility] ([facility]) [address], [place], [address], 02/02/2025 08:07:07 02/02/2002/02/2025 CMP14 +EGFR ALT (SGPT) 52 IU/L 0-32 above high normal Not Available [facility] ([facility]) [address], [place], [address], 02/02/2025 08:07:07 02/02/2002/02/2025 CBC WITH DIFFE RENTI AL/PL ATELE T WBC 11.5 x10e3 /uL 3.4-10 .8 above high normal Not Available [facility] ([facility]) [address], [place], [address], 02/02/2025 08:07:08 02/02/2002/02/2025 CBC WITH DIFFE RENTI AL/PL ATELE T RBC 4.67 x10e6 /uL 3.77-5 .28 normal Not Available [facility] ([facility]) [address], [place], [address], 02/02/2025 08:07:08 02/02/2002/02/2025 CBC WITH DIFFE RENTI AL/PL ATELE T hemoglobin 13.3 g/dL 11.1-1 5.9 normal Not Available [facility] ([facility]) [address] [place], [address], 02/02/2025 08:07:08 02/02/2002/02/2025 CBC WITH DIFFE RENTI AL/PL ATELE T hematocrit 40.9 % 34.0-4 6.6 normal Not Available [facility] ([facility]) [address], [place], [address], 02/02/2025 08:07:08 02/02/2002/02/2025 CBC WITH DIFFE RENTI AL/PL ATELE T MCV 88 fL 79-97 normal Not Available [facility] ([facility]) [address], [place], [address], 02/02/2025 08:07:08 02/02/2002/02/2025 CBC WITH DIFFE RENTI AL/PL ATELE T MCH 28.5 pg 26.6-3 3.0 normal Not Available [facility] ([facility]) [address], [place], [address], 02/02/2025 08:07:08 02/02/2002/02/2025 CBC WITH DIFFE RENTI AL/PL ATELE T MCHC 32.5 g/dL 31.5-3 5.7 normal Not Available [facility] ([facility]) [address], [place], [address], 02/02/2025 08:07:08 02/02/2002/02/2025 CBC WITH DIFFE RENTI AL/PL ATELE T RDW 14.0 % 11.7-1 5.4 Not Available [facility] ([facility]) [address], [place], [address], 02/02/2025 08:07:08 02/02/2002/02/2025 CBC WITH DIFFE RENTI AL/PL ATELE T platelets 363 x10e3 /uL 150-45 0 normal Not Available [facility] ([facility]) [address], [place], [address], 02/02/2025 08:07:08 02/02/2002/02/2025 CBC WITH DIFFE RENTI AL/PL ATELE T neutrophils 55 % not estab. normal Not Available [facility] ([facility]) [address], [place], [address], 02/02/2025 08:07:08 02/02/20 25 02/02/2025 CBC WITH DIFFE RENTI AL/PL ATELE T lymphs 33 % not estab. normal Not Available [facility] ([facility]) [address], [place], [address], 02/02/2025 08:07:08 02/02/2002/02/2025 CBC WITH DIFFE RENTI AL/PL ATELE T monocytes 8 % not estab. normal Not Available [facility] ([facility]) [address] [place], [address], 02/02/2025 08:07:08 02/02/2002/02/2025 CBC WITH DIFFE RENTI AL/PL ATELE T eos 2 % not estab. normal Not Available [facility] ([facility]) [address], [place], [address], 02/02/2025 08:07:08 02/02/2002/02/2025 CBC WITH DIFFE RENTI AL/PL ATELE T basos 1 % not estab. 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 0 normal Not Available [facility] ([facility]) [address] [place], [address], 02/02/2025 08:07:08 02/02/2002/02/2025 CBC WITH DIFFE RENTI AL/PL ATELE T lymphs (absolute) 3.7 x10e3 /uL 0.7-3. 1 above high normal Not Available [facility] ([facility]) [address] [facility] [place], [address], 02/02/2025 08:07:08 02/02/2002/02/2025 CBC WITH DIFFE RENTI AL/PL ATELE T monocytes(ab solute) 0.9 x10e3 /uL 0.1-0. 9 normal Not Available [facility] ([facility]) [address], [place], [address], 02/02/2025 08:07:08 02/02/2002/02/2025 CBC WITH DIFFE RENTI AL/PL ATELE T eos (absolute) 0.2 x10e3 /uL 0.0-0. 4 normal Not Available [facility] ([facility]) [address], [place], [address], 02/02/2025 08:07:08 02/02/2002/02/2025 CBC WITH DIFFE RENTI AL/PL ATELE T baso (absolute) 0.1 x10e3 /uL 0.0-0. 2 normal Not Available [facility] ([facility]) [address], [place], [address], 02/02/2025 08:07:08 02/02/2002/02/2025 CBC WITH DIFFE RENTI AL/PL ATELE T immature granulocytes 1 % not estab. Not Available [facility] ([facility]) [address], [place], [address], 02/02/2025 08:07:08 02/02/2002/02/2025 CBC WITH DIFFE RENTI AL/PL ATELE T immature grans (abs) 0.1 x10e3 /uL 0.0-0. 1 Not Available [facility] ([facility]) [address], [place], [address], 02/02/2025 08:07:08 02/02/20 25 02/02/2025 CBC WITH DIFFE RENTI AL/PL ATELE T NRBC [employer]OOKBINDER APPRENTICE Not Available [facility] ([facility]) [address], [place], [address], 02/02/2025 08:07:08 02/02/2002/02/2025 CBC WITH DIFFE RENTI AL/PL ATELE T hematology comments: BOOKBINDER APPRENTICE Not Available [facility]) [address], [place], [address], 02/02/2025 08:07:08 02/02/20 25 02/02/2025 MUKUND+L IPASE amylase 55 U/L 31-110 normal Not Available [facility] ([facility]) [address], [place], [address], 02/02/2025 08:07:08 02/02/20 25 02/02/2025 MUKUND+L IPASE lipase 16 U/L 14-72 normal Not Available [facility] ([facility]) [address], [place], [address], 02/02/2025 08:07:08 02/12/2002/09/2025 MRI, brain , w/wo contr ast No observ ation record ed. [facility] [address], [place], [address], 02/11/2025 16:33:04 03/12/2003/11/2025 CT, abdom en + pelvi s, w/ contr ast No observ ation record ed. hank Not Available 02/23 10:26:23 Result Notes None recorded. Problems Name Problem SNOMED Code Status Onset Date Resolution Date Notes Provider Name and Address Organization Details Recorded Time Neurocardio genic syncope 388112370 Active 2023 SUZANNE TEJADA PA-C [address], [place], [address], [place] [facility] 11:55:52 Gender identity finding 468667329 Active 2023 SUZANNE TEJADA PA-C [address], [place], [address], [place] [facility] 4 08:48:39 History of eating disorder 8997081711478 01 Active 2023 SUZANNE TEJADA PA-C [address] [place] [address], [place], [address], [place] [facility] 4 08:48:42 Obsessive-c ompulsive disorder 209793161 Active 2023 SUZANNE TEJADA PA-C [address] [place] [address], [place], [address], [place] [facility] 4 08:48:43 Depressive disorder 77679675 Active 2023 SUZANNE TEJADA PA-C [address] [place] [address], [place], [address], [place] [facility] 4 08:48:46 Bipolar II disorder 16217533 Active 2023 SUZANNE TEJADA PA-C [address] [place] [address], [place], [place], 2, [place] [facility] 4 08:48:46 Generalized anxiety disorder 35800208 Active 2023 SUZANNE TEJADA PA-C [address] [place] [address], [place], [place], 2, [place] [facility] 4 08:48:59 Palpitation s 59997512 Active 2024 SUZANNE TEJADA PA-C [address] [place] [address], [place], [place], 2, [place] [facility] 5 11:55:52 Orthostatic lightheaded ness 48091821 Active 2024 SUZANNE TEJADA PA-C [address] [place] [address], [place], [address], [place] [facility] 5 11:55:53 Elevated d-dimer 781947033 Active 2024 Marbella Coleman, AGUS [address], [place], [place], [address], [place] [facility] 5 15:59:53 Gastroesoph ageal reflux disease, unspecified whether esophagitis present 456469870 Active 2024 Marbella Coleman, AGUS [address], [place], [address], [facility] 5 16:02:42 History of cholecystec kenneth 525154774 Active 2024 SUZANNE TEJADA PA-C [address], [place], [address], [facility] 5 06:34:24 Problem Notes None recorded. Procedures Surgical History Date Name Laterality Status Provider Name and Address Organization Details Recorded Time cholecystectomy completed SUZANNE TEJADA PA-C [address], [place], [address], [facility] 02/01/2025 11:47:40 Imaging Results None recorded. Procedure Notes None recorded. Medical Equipment None Reported. Allergies Allergen ID Allergen Name Allergen Category Reaction Reaction Severity Criticality Documentation Date Start Date Code Code System Note Provider Name and Address Organization Details Recorded Time 68165 beef allergeni c extract food,medi cation abdominal pain Not available Not available 03/12/20252024 09673 9 RxNorm Not Available [employer] - External Data Service - prod 13:09:37 Medications Name Sig Start Date Stop Date Status Note LastModified by Organization Details LastModified Time fluoxetine 40 mg capsule TAKE 1 CAPSULE BY MOUTH EVERY DAY 11/27 completed Not Available Not Available Not Available Lidocaine Viscous 2 % mucosal solution TAKE 10 ML MIXED WITH 30 ML MAALOX BY MOUTH 3 TIMES A DAY NEEDED FOR 5 DAYS active Not Available Not Available No t Available sucralfate 1 gram tablet TAKE 1 TABLET BY MOUTH TWICE DAILY active Not Available Not Available No t Available naltrexone 50 mg tablet TAKE 1/4 [...] Not Available Not Available Not Avai lable famotidine 20 mg tablet TAKE 1 TABLET BY MOUTH TWICE A DAY active Not Available Not Available No t Available triamcinolo ne acetonide 55 mcg nasal spray [...] Available ondansetron 4 mg disintegrat ing tablet TAKE 1 TABLET BY MOUTH EVERY 8 HOURS NEEDED FOR NAUSEA AND VOMITING active Not Available Not Available No t Available fluoxetine 20 mg capsule TAKE 1 CAPSULE BY MOUTH ONCE DAILY 2024 active Not Available Not Available Not Avai lable oxycodone 5 mg tablet TAKE 1 TABLET BY MOUTH EVERY 4 HOURS NEEDED FOR PAIN 01/07 completed Not Available Not Available Not Available aripiprazol e 10 mg tablet TAKE 1 TABLET BY MOUTH EVERY DAY 2024 active Not Available Not Available Not Avai lable aripiprazol e 15 mg tablet 03/12 completed Not Available Not Available Not Available [...] completed Not Available Not Available Not Available Antacid-Ant igas 200 mg-200 mg-20 mg/5 mL oral suspension TAKE 30 ML BY MOUTH 3 TIMES A DAY NEEDED FOR 5 DAYS. active Not Available Not Available No t Available Alyacen (28) 1 mg-35 mcg tablet TAKE 1 TABLET BY MOUTH DAILY. SKIP PLACEBO PILLS active Not Available Not Available No t Available Vitals Date Recorded Body height Heart rate Oxygen saturation Systolic And Diastolic Provider Name and Address Organization Details Last Updated DateTime 01/07/2025 170.18 cm 80 /min 98 % 122/74 mm[Hg] Mahogany Bennett LPN [address] [facility] [facility] [address], [place], [address] , [facility] 01/07/2025 09:35:41 Date Recorded Body height Body mass index (BMI) Body weight Oxygen saturation Heart rate Systolic And Diastolic Provider Name and Address Organization Details Last Updated DateTime 5 170.18 cm 46.7 kg/m2 979074. 53 g 99 % 80 /min 128/80 mm[Hg] [facility] 12:48:41 Date Recorded Body height Body mass index (BMI) Body weight Oxygen saturation Heart rate Systolic And Diastolic Provider Name and Address Organization Details Last Updated DateTime 5 170.18 cm 46 kg/m2 731042. 16 g 99 % 67 /min 126/74 mm[Hg] Idalia Sosa [facility] 11:32:08 Date Recorded Body height Body mass index (BMI) Body weight Oxygen saturation Heart rate Systolic And Diastolic Provider Name and Address Organization Details Last Updated DateTime 5 170.18 cm 46.4 kg/m2 471146. 34 g 98 % 74 /min 90/84 mm[Hg] Caren Anderson [facility] 13:52:37 Social History Question Answer Notes LastModified by Organizat ion Details LastModified Time Tobacco Smoking Status Never Smoker SUZANNE TEJADA PA-C [address], [place], [address], [facility] 04/16/2024 08:24:32 What Was The Date Of Your Most Recent Tobacco Screening? 04/16/2024 Socially [email or web address] Information not available 04/16/2024 Sex: Unknown Functional Status Question Answer Note LastModified by Organizat ion Details LastModified Time Do you use any illicit or recreational drugs? edibles or smoking 5-7 times per week [email or web address] Information not available 04/16/2024 Mental Status None recorded. Family History Relationship Description Onset Age of this Age Resolved Age Notes LastModified by Organization Details LastModified Time Maternal Grandmother Diabetes mellitus [email or web address] Not available 2023 08:20:03 Maternal Grandmother Myocardial infarction [address] was cause of [email or web address] Not available 04/16/2024 08:21:13 Maternal Uncle Diabetes mellitus [email or web address] Not available 2023 08:20:03 Paternal Grandmother Myocardial infarction 50 [email or web address] Not available 04/16 08:21:13 Father Hypertensive disorder Not available 2023 08:21:56 Unspecified Relation Obesity matern al side [email or web address] Not available 04/16/2024 08:22:10 Unspecified Relation Depressive disorder [email or web address] Not available 2023 08:22:56 Unspecified Relation Bipolar disorder [email or web address] Not available 2023 08:23:10 Unspecified Relation Anxiety disorder [email or web address] Not available 2023 08:23:23 Medical History No medical history recorded. Gynecological HistoryNo gynecological history recorded. Obstetrics History GPAL:G 0 P 0 0 0 0 Past Encounters Encounter ID Performer Location Encounter Start Date Encounter Closed Date Diagnosis/Indication Diagnosis SNOMED-CT Code Diagnosis ICD10 Code Diagnosis IMO Codes Diagnosis Note [id number] SUZANNE TEJADA PA-C [facility] [address] [place], [place] [address] [address] [place] [address] 04/16/2024 07:52:15 04/16/2024 08:33:44 Patient new to provider [id number] 45009 Z76.89 Patient new to practice, here to establish care. Has not been seen by this office or provider within the last 3 years. Generalize d anxiety disorder 29779283 F41.1 [facility] followed Q4-6 weeks.Cont inues with therapist. Maintained on aripiprazo le and fluoxetine , although not currently taking meds in last few weeks. Depressive disorder 3548 9007 F32.A As above. Bipolar II disorder 8322 5003 F31.81 As above. Obsessive- compulsive disorder 164849751 F42.9 History of eating disorder 4964472646 40474 Z86.59 Vasovagal syncope 653838 [address] Florence. Continues with good hydration and electrolyt e repletion. Has not trialed compressio n socks. Curious if they may struggle with an underlying POTS diagnosis. Gender shamar ntity finding 294528782 F64.0 Testostero ne therapy prescribed by [email or web address] oming breast reconstruc tion consult July [address] Sherri Balderas at [facility]. Allergic r eaction to food 268365592 T78.1XXS Requests referral for formal allergy testing. 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 [id number] DO Ashlyn Gleason [address] [place] [address] 08/29/2024 08:18:21 08/29/2024 09:18:42 Bipolar disorder 19077312 F31.81 Immobility syndrome 2030 26673 M62.3 83786397 fax Obstructiv e sleep apnea syndrome 07038295 G47.33 721249 Postural o rthostatic tachycardia syndrome 484624118 G90.A 514843 [id number] DO Ashlyn Gleason [address] [place] [address] 10/10/2024 08:30:10 10/10/2024 09:10:49 Biliary calculus 025973929 K80.20 1572431 Obsessive- compulsive disorder 449244630 F42.9 Tick bite 05449592 S20.3 61D W57.XXXD 4680812238 Acute vomiting 89729083 R11.10 8553032 [id number] SUZANNE TEJADA PA-C [address] [place] [address] 11/27/2024 09:56:30 11/27/2024 10:28:12 Seen in department 937463167 Z76.89 [id number] 11/11/2024 emergency medicine note reviewed. Palpitations 56066234 R0 0.2 80020 Prediabetes 564777911 R7 3.03 151985 Vasovagal syncope 670418 005 R55 522896 Previously followed by Dr. Florence, although not at this time. Management as above.10/17: Positive head up Tilt Table Test for neurocardi ogenic (vasovagal ) syncope. The patient exhibited a mixed cardioinhi bitory and vasodepres sor response after 10 minutes of an upright tilt. Orthostati c hypotension 36003069 R42 8315328 Suspected underlying POTS; patient has not been [...] slow transition al changes, etc. Chest pain 84151042 R07. 9 27901581 1 episode of atypical chest pain on [...] if they need any additional order sent. [id number] Marbella Coleman NP [facility] [address] [place] [address] 11/29/2024 15:13:47 11/29/2024 16:04:52 D-dimer above reference range 816838168 R79.89 05713461 Gastroesop hageal reflux disease 536944298 K21.9 0080142852 [id number] Justino Santos [address] [place] [address] 01/07/2025 09:24:23 01/07/2025 09:54:22 Vasovagal syncope 426338771 R55 255475 Orthostati c hypotension 86598188 R42 1782010 Depressive disorder 3548 9007 F32.A Mild major depression 87 114426 F32.0 01252 Recurrent major depressive episodes, mild 155543768 F33.0 98059 [id number] Justino Santos [address] [address] [place] [address] 01/17/2025 12:40:23 01/17/2025 13:27:07 Vasovagal syncope 031694139 R55 842828 Multiple sclerosis 57643 007 G35 27908 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 22609179 [id number] SUZANNE TEJADA PA-C [address] [address] [place] [address] 02/01/2025 11:22:12 02/01/2025 12:19:27 Right sided chest pain 203880488 R07.9 50167686 History of cholecystectomy 303533765 Z90.49 528306 Dysphagia 62322584 R13.1 0 76192008 [id number] VARINDER GREENBERG [address] [address] [place] [address] 03/12/2025 13:30:34 03/12/2025 14:09:48 Bile-induced gastritis 31477268 K29.60 942288 Discussed most likely gastritis, no evidence of ulcer, H&H stableDisc ussed mechanism of action GI medsDATFol low up GICall new or worsening symptoms [id number] SUZANNE TEJADA PA-C [address] [place] [address] 03/28/2025 13:36:00 03/28/2025 14:06:57 Left upper quadrant pain 601094647 R10.12 9802841 Nausea and vomiting 1691999 R11.2 2376468410 History of cholecystectomy 398003176 Z90.49 863549 Vasovagal syncope 588034 005 R55 882611 Previously followed by Dr. Florence, although not at this time.: Positive head up Tilt Table Test for neurocardi ogenic (vasovagal ) syncope. The patient exhibited a mixed cardioinhi bitory and vasodepres sor response after 10 minutes of an upright tilt.- Provide a letter confirming the presence of a service dog in training for cardiac alert, related to history of syncope, to support housing applicatio n [facility]. Bile-induc ed gastritis 73448794 K29.60 586645 Urgent archie kevin for stool 93366544 R15.2 718191 Health Concerns Section Related Observation LastModified by Organization Detai ls LastModified Time None Recorded Concern Status LastModified by Organization Details LastModified Time None Recorded Advance Directives Directive None Recorded Payers Insurance Date Sequence Insurance Name Policy Number Policy Ross Covered Member ID Ross Member ID Guarantor Name 10/24/2024 1 [facility] (HMO) [id number] Brooke Jo [id number] Brooke Jo 04/01/2025 2 [facility] (HMO) [id number] Brooke L Jo [id number] Brooke Jo 11/27/2024 1 [facility] [employer] - TOGETHER (MEDICAID HMO) [id number] Brooke L Jo [id number] Brooke Jo 04/01/2025 1 [facility] [employer] - TOGETHER WITH [facility] (MEDICAID REPLACEMENT - HMO) [id number] Brooke L Jo [id number] Brooke Jo Notes Date Note Type Note Provider Name and Address Organization Details Recorded Time 01/07/2025 text/html ROS as noted in the HPI Brooke Osorio, 24-year-old female - Sudden onset of significant [...] taken for current symptoms prior to visitBrooke Osorio, 24-year-old female - Right hand clumsiness and [...] presyncope episode prior to visit Justino Santos, DO [address] [facility], [facility] [address], [place], [address], [employer] [facility] 01/09/2025 21:18:22 01/17/2025 text/html ROS as noted in the HPI Julisa Osorio, 24-year-old female - Fainted twice prior to [...] 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 She reports ongoing symptoms similar to those experienced before gallbladder removal, including immediate need to use the bathroom after eating and inability to retain food. She has a history of gallbladder removal in November 2024, following two emergency department visits for inability to keep food or fluids down and recurrent vomiting after eating. Gallstones were identified prior to surgery. Postoperatively, she experienced night sweats and increased pain about a week after surgery, which resolved without fever. She was previously prescribed omeprazole for suspected [...] planned due to family history of MS. 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 I did give her a GI cocktail which did help her symptoms she found base remover in [place] at [facility] that we will see her in March she needs a referral placed. She states that her diet was altered when she had her cholecystectomy. She is staying hydrated. Today she is not experiencing any abdominal pain. No trouble with stools. VARINDER GREENBERG [address] [facility], [address], [place], [address], [place] - [facility] 03/12/2025 14:18:28 03/28/2025 text/html ROS as noted in the HPI CC: Completion of PFML paperwork. Julisa Osorio, a 25-year-old nonbinary patient (AFAB), reports ongoing gastrointestinal symptoms that have significantly impacted their ability to work and perform daily activities. Since March 11, 2025, they have been unable to work due to severe abdominal pain that is tender to the touch, making it difficult to bend at the waist. They describe frequent vomiting and episodes of fecal urgency, stating that when they need to have a bowel movement, they cannot wait and must leave immediately. Bowel movements are reported as very loose. They also experiences frequent indigestion. They have visited the emergency department multiple times for these symptoms, including at [facility]. They have not yet been seen by outpatient gastroenterology but has an endoscopy scheduled for April 08, 2025. They are currently taking omeprazole 20 mg twice daily, famotidine 20 mg twice daily, and sucralfate twice daily. They completed a 5-day course of oral lidocaine, which they found very helpful. They previously underwent gallbladder removal, but their gastrointestinal symptoms have persisted since that procedure. They express concern about their health and its impact on their ability to work and live independently, including considerations about their current job and proximity to family. SUZANNE TEJADA PA-C [address] [facility], [address], [place], [address], [facility] - [facility] 04/01/2025 06:37:07 OBGyn Episode No OBEpisode recorded.
--- OUTSIDE RECORDS SUMMARY | 2025-04-19 02:48 | XMS_ITS | Continuity of Care Document ---
Author Organization [place] - [facility], [facility] Address [address] [facility] [address] [place] [address] Assessment Encounter Date Assessment Date Assessment LastModified by Organization Details LastModified Time 03/12/2025 03/12/2025 The following time was spent on todays E/M encounter, including preparing for the visit, reviewing results, seeing the patient, and documentation on the date of service of the encounter: 30 43935 15-29 minutes 91728 30-44 minutes 92583 45-59 minutes 38878 60-74 minutes 73628 10-19 minutes 28509 20-29 minutes 67692 30-39 minutes 67235 40-54 minutes [email or web address] Not available 03/12/2025 14:18:16 Plan of Treatment Reminders Order Date Submit Date Provider Last Modified By Organization Details Last Modified Time Details Appointments None recorded. Lab None recorded. Referral gastroenter ologist referral 2024 025 [facility], [address] [facility] [address], [place], [address], 5 04:02:05 Procedures None recorded. Surgeries None recorded. Imaging None recorded. Medication Orders None recorded. Patient TargetsNo targets recorded. Patient InstructionsNo instructions recorded. 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 [facility] [address], [place], [address], 02/11/2025 16:33:04 03/12/20 25 03/11/2025 CT, abdom en + pelvi s, w/ contr ast No observ ation record ed. hank Not Available 02/23 10:26:23 Result Notes None recorded. Problems Name Problem SNOMED Code Status Onset Date Resolution Date Notes Provider Name and Address Organization Details Recorded Time Neurocardio genic syncope 065190624 Active 2023 ANTONIO TEJADA PA-C [address] [facility] [address], [address], [place], [address], [place] - [facility] 5 11:55:52 Gender identity finding 421956320 Active 2023 ANTONIO TEJADA PA-C [address] [facility] [address], [address], [place], [address], [place] [facility] 4 08:48:39 History of eating disorder 3377460677438 01 Active 2023 ANTONIO TEJADA PA-C [address] [facility] [address], [address], [place], [address], [place] - [facility] 4 08:48:42 Obsessive-c ompulsive disorder 638037561 Active 2023 ANTONIO TEJADA PA-C [address] [facility] [address], [address], [place], [address], [place] - [facility] 4 08:48:43 Depressive disorder 59828265 Active 2023 ANTONIO TEJADA PA-C [address] [facility], [address], [place], [place], [address], [place] - [facility] 4 08:48:46 Bipolar II disorder 07485474 Active 2023 ANTONIO TEJADA PA-C [address] [facility], [address], [place], [address], [place] - [facility] 4 08:48:46 Generalized anxiety disorder 33779602 Active 2023 ANTONIO TEJADA PA-C [address] [facility], [address], [place], [address], [place] - [facility] 4 08:48:59 Palpitation s 82652705 Active 2024 ANTONIO TEJADA PA-C [address] [place] [address], [place], [address], [place] - [facility] 5 11:55:52 Orthostatic lightheaded ness 53030513 Active 2024 ANTONIO TEJADA PA-C [address] [place] [address], [place], [address], [place] - [facility] 5 11:55:53 Elevated d-dimer 202079662 Active 2024 Marbella Coleman NP [address] [place] [address], [place], [address], [place] - [facility] 5 15:59:53 Gastroesoph ageal reflux disease, unspecified whether esophagitis present 787036799 Active 2024 Marbella Coleman NP [address] [place] [address], [place], [address], [place] - [facility] 5 16:02:42 History of cholecystec kenneth 104379773 Active 2024 ANTONIO TEJADA PA-C [address] [place] [address] [place], [address], [place] - [facility] 5 06:34:24 Problem Notes None recorded. Procedures Surgical History Date Name Laterality Status Provider Name and Address Organization Details Recorded Time cholecystectomy completed ANTONIO TEJADA PA-C [address] [place] [address], [place], [address], [place] - [facility] 02/01/2025 11:47:40 Imaging Results None recorded. Procedure Notes None recorded. Medical Equipment None Reported. Allergies Allergen ID Allergen Name Allergen Category Reaction Reaction Severity Criticality Documentation Date Start Date Code Code System Note Provider Name and Address Organization Details Recorded Time 83769 beef allergeni c extract food,medi cation abdominal pain Not available Not available 03/12/20252024 08569 9 RxNorm Not Available analilia - External Data Service - prod 13:09:37 [...] Available Not Available No t Available Alyacen 35 (28) 1 mg-35 mcg tablet TAKE 1 TABLET BY MOUTH DAILY. SKIP PLACEBO PILLS active Not Available Not Available No t Available Vitals Date Recorded Body height Body mass index (BMI) Body weight Oxygen saturation Heart rate Systolic And Diastolic Provider Name and Address Organization Details Last Updated DateTime 170.18 cm 46.4 kg/m2 769582. 34 g 98 % 74 /min 90/84 mm[Hg] Caren Anderson [facility] 13:52:37 Social History Question Answer Notes LastModified by Organizat ion Details LastModified Time Tobacco Smoking Status Never Smoker ANTONIO TEJADA PA-C [address] [place] [address] [address], [place], [address], [facility] 04/16/2024 08:24:32 What Was The Date Of Your Most Recent Tobacco Screening? 04/16/2024 Socially [email or web address] Information not available 04/16/2024 Sex: Unknown Functional Status Question Answer Note LastModified by Organizat ion Details LastModified Time Do you use any illicit or recreational drugs? edibles or smoking 5-7 times per week [email or web address] Information not available 04/16/2024 Mental Status None recorded. Family History Relationship Description Onset Age of this Age Resolved Age Notes LastModified by Organization Details LastModified Time Maternal Grandmother Diabetes mellitus [email or web address] Not available 2023 08:20:03 Maternal Grandmother Myocardial infarction 45 undete rmined if MS was cause of [email or web address] Not available 04/16/2024 08:21:13 Maternal Uncle Diabetes mellitus [email or web address] Not available 2023 08:20:03 Paternal Grandmother Myocardial infarction 50 Not available 04/16 08:21:13 Father Hypertensive disorder [email or web address] Not available 2023 08:21:56 Unspecified Relation Obesity matern al side [email or web address] Not available 04/16/2024 08:22:10 Unspecified Relation Depressive disorder [email or web address] Not available 2023 08:22:56 Unspecified Relation Bipolar disorder [email or web address] Not available 2023 08:23:10 Unspecified Relation Anxiety disorder [email or web address] Not available 2023 08:23:23 Medical History No medical history recorded. Gynecological HistoryNo gynecological history recorded. Obstetrics History GPAL:G 0 P 0 0 0 0 Past Encounters Encounter ID Performer Location Encounter Start Date Encounter Closed Date Diagnosis/Indication Diagnosis SNOMED-CT Code Diagnosis ICD10 Code Diagnosis IMO Codes Diagnosis Note [id number] VARINDER GREENBERG [facility] [address] [place] [address],[address] [facility] [place] [address] 03/12/2025 13:30:34 03/12/2025 14:09:48 Bile-induced gastritis 39250915 K29.60 046484 Discussed most likely gastritis, no evidence of ulcer, H&H stableDisc ussed mechanism of action GI medsDATFol low up GICall new or worsening symptoms Health Concerns Section Related Observation LastModified by Organization Detai ls LastModified Time None Recorded Concern Status LastModified by Organization Details LastModified Time None Recorded Payers Encounter Date Sequence Insurance Name Policy Number Policy Ross Covered Member ID Ross Member ID Guarantor Name 03/12/2025 2 [facility] [employer] (HMO) [id number] Brooke L Jo [id number] Brooke Jo 03/12/2025 1 [facility] [employer] - TOGETHER WITH [employer] (MEDICAID REPLACEMENT - HMO) [id number] Brooke L Jo [id number] Brooke Jo Notes Date Note Type Note Provider Name and Address Organization Details Recorded Time 03/12/2025 text/html Recent ED visit x 2 for abdominal pain had extensive workup to include labs and abdominal pelvis CT with no significant findings had previously been started on famotidine twice daily for epigastric pain emergency department added Carafate twice daily she 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 She states that her diet was altered when she had her cholecystectomy. She is staying hydrated. Today she is not experiencing any abdominal pain. No trouble with stools. VARINDER GREENBERG [address] [facility] [address], [place], [address], [facility] - [facility] 03/12/2025 14:18:28 OBGyn Episode No OBEpisode recorded.
--- OUTSIDE RECORDS SUMMARY | 2025-04-19 02:49 | XMS_ITS | Continuity of Care Document ---
Author Organization [place] [facility] Address [address] [facility] [address] [place] [address] Assessment Encounter Date Assessment Date Assessment LastModified by Organization Details LastModified Time 03/28/2025 03/28/2025 Assessment - Ongoing gastrointestinal condition requiring further evaluation with endoscopy scheduled for April 08, 2025 in [place]. Patient has been evaluated multiple times in [...] able, send copies of medical records from [facility] to the office to maintain comprehensive documentation. - Contact the office with any questions regarding the paperwork process or if additional documentation or letters are needed. Appointments - Endoscopy scheduled on April 08, 2025 through [email or web address] (via referral) During this encounter, 2 of the 3 elements of MDM addressed: (1)Number and Complexity of problems: 1 or more chronic illness with exacerbation, progression, or side effects of treatment (2)Amount/Complexi ty of data (need 1 out of 3 categories): Category 3: Discussion of management or test interpretation (3)Moderate Risk of morbidity from additional diagnostic testing or treatment (one needed): [email or web address] Not available 04/01/2025 06:35:47 Plan of Treatment Reminders Order Date Submit Date Provider Last Modified By Organization Details Last Modified Time Details Appointments None record ed. Lab None record ed. Referral None record ed. Procedures None record ed. Surgeries None record ed. Imaging None record ed. Medication Orders None record ed. Patient TargetsNo targets recorded. Patient InstructionsNo instructions recorded. Reason for Referral None Reported. Results Created Date Observation Date Name Description Value Unit Range Abnormal Flag Note LastModifiedBy Organization Detail LastModifiedTime 03/12/2003/11/2025 CT, abdom en + pelvi s, w/ contr ast No observ ation record ed. [email or web address] Not Available 02/23 10:26:23 Result Notes None recorded. Problems Name Problem SNOMED Code Status Onset Date Resolution Date Notes Provider Name and Address Organization Details Recorded Time Neurocardio genic syncope 907964325 Active 2023 ANTONIO TEJADA PA-C [address] [place] [address], [place], [address], [place] [facility] 5 11:55:52 Gender identity finding 198225727 Active 2023 ANTONIO TEJADA PA-C [address] [place] [address], [facility] [address], [place], [address], [place] [facility] 4 08:48:39 History of eating disorder 1332006656700 01 Active 2023 ANTONIO TEJADA PA-C [address] [place] [address], [facility] [address], [place], [address], [place] [facility] 4 08:48:42 Obsessive-c ompulsive disorder 165112995 Active 2023 ANTONIO TEJADA PA-C [address] [place] [address], [address], [place], [address], [place] [facility] 4 08:48:43 Depressive disorder 44597114 Active 2023 ANTONIO TEJADA PA-C [address] [place] [address], [facility] [address], [place], [address], [place] [facility] 4 08:48:46 Bipolar II disorder 26186605 Active 2023 ANTONIO TEJADA PA-C [address] [place] [address], [place], [address], [place] [facility] 4 08:48:46 Generalized anxiety disorder 58236054 Active 2023 ANTONIO TEJADA PA-C [address] [place] [address], [place], [address], [place] [facility] 4 08:48:59 Palpitation s 76191724 Active 2024 ANTONIO TEJADA PA-C [address] [place] [address], [place], [address], [place] [facility] 5 11:55:52 Orthostatic lightheaded ness 90023502 Active 2024 ANTONIO TEJADA PA-C [address] [place] [address], [place], [address], [place] [facility] 5 11:55:53 Elevated d-dimer 969008890 Active 2024 Marbella Coleman NP [address] [place] [address], [place], [address], [place] [facility] 5 15:59:53 Gastroesoph ageal reflux disease, unspecified whether esophagitis present 646721926 Active 2024 Marbella Coleman NP [address] [place] [address], [place], [address], [place] [facility] 5 16:02:42 History of cholecystec kenneth 788097350 Active 2024 ANTONIO TEJADA PA-C [address] [place] [address], [place], [address], [place] [facility] 5 06:34:24 Problem Notes None recorded. Procedures Surgical History Date Name Laterality Status Provider Name and Address Organization Details Recorded Time cholecystectomy completed ANTONIO TEJADA PA-C [address] [place] [address], [place], [address], [place] [facility] 02/01/2025 11:47:40 Imaging Results None recorded. Procedure Notes None recorded. Medical Equipment None Reported. Allergies Allergen ID Allergen Name Allergen Category Reaction Reaction Severity Criticality Documentation Date Start Date Code Code System Note Provider Name and Address Organization Details Recorded Time 65568 beef allergeni c extract food,medi cation abdominal pain Not available Not available 03/12/20252024 15484 9 RxNorm Not Available [employer] [email or web address] - External Data Service - prod 13:09:37 [...] Available Not Available No t Available Vitals None Recorded Social History Question Answer Notes LastModified by Organizat ion Details LastModified Time Tobacco Smoking Status Never Smoker ANTONIO TEJADA PA-C [address] [place] [address], [place], [address], [facility] 04/16/2024 08:24:32 What Was The Date Of Your Most Recent Tobacco Screening? 04/16/2024 Socially [email or web address] Information not available 04/16/2024 Sex: Unknown Functional Status Question Answer Note LastModified by Organizat ion Details LastModified Time Do you use any illicit or recreational drugs? edibles or smoking 5-7 times per week [email or web address] Information not available 04/16/2024 Mental Status None recorded. Family History Relationship Description Onset Age of this Age Resolved Age Notes LastModified by Organization Details LastModified Time Maternal Grandmother Diabetes mellitus [email or web address] Not available 2023 08:20:03 Maternal Grandmother Myocardial infarction 45 undete rmined if [place] was cause of Not available 04/16/2024 08:21:13 Maternal Uncle Diabetes mellitus [email or web address] Not available 2023 08:20:03 Paternal Grandmother Myocardial infarction 50 Not available 04/16 08:21:13 Father Hypertensive disorder [email or web address] Not available 2023 08:21:56 Unspecified Relation Obesity matern al side [email or web address] Not available 04/16/2024 08:22:10 Unspecified Relation Depressive disorder [email or web address] Not available 2023 08:22:56 Unspecified Relation Bipolar disorder [email or web address] Not available 2023 08:23:10 Unspecified Relation Anxiety disorder Not available 2023 08:23:23 Medical History No medical history recorded. Gynecological HistoryNo gynecological history recorded. Obstetrics History GPAL:G 0 P 0 0 0 0 Past Encounters Encounter ID Performer Location Encounter Start Date Encounter Closed Date Diagnosis/Indication Diagnosis SNOMED-CT Code Diagnosis ICD10 Code Diagnosis IMO Codes Diagnosis Note [id number] VARINDER GREENBERG [facility] [address] [facility],[address] [place] [address] 03/12/2025 13:30:34 03/12/2025 14:09:48 Bile-induced gastritis 41639743 K29.60 903699 Discussed most likely gastritis, no evidence of ulcer, H&H stableDisc ussed mechanism of action GI medsDATFol low up GICall new or worsening symptoms [id number] ANTONIO TEJADA PA-C [facility] [address] [facility],[address] [place] [address] 03/28/2025 13:36:00 03/28/2025 14:06:57 Left upper quadrant pain 964985050 R10.12 8281526 Nausea and vomiting 1693 1999 R11.2 9241547234 History of cholecystectomy 749030480 Z90.49 679921 Vasovagal syncope 139575 005 R55 422288 Previously followed by Dr. Florence, although not [...] history of syncope, to support housing applicatio kathleen Juárez-induc ed gastritis 58597465 K29.60 269924 Urgent archie kevin for stool 15050085 R15.2 139624 Health Concerns Section Related Observation LastModified by Organization Detai ls LastModified Time None Recorded Concern Status LastModified by Organization Details LastModified Time None Recorded Payers Encounter Date Sequence Insurance Name Policy Number Policy Ross Covered Member ID Ross Member ID Guarantor Name 03/28/2025 2 [facility] [employer] (HMO) [id number] Brooke L Jo [id number] Brooke Jo 03/28/2025 1 [facility] [employer] - TOGETHER WITH [employer] (MEDICAID REPLACEMENT - HMO) [id number] Brooke L Jo [id number] Brooke Jo Notes Date Note Type Note Provider Name and Address Organization Details Recorded Time 03/28/2025 text/html ROS as noted in the [...] multiple times for these symptoms, including at [facility]. They have not yet been seen [...] their current job and proximity to family. ANTONIO TEJADA PA-C [address] [facility] [address], [place], [address], [place] [facility] 04/01/2025 06:37:07 OBGyn Episode No OBEpisode recorded.
--- OUTSIDE RECORDS SUMMARY | 2025-04-19 02:49 | XMS_ITS | Continuity of Care Document ---
Author Organization [place] [facility] Address [address] [facility] [address] [place] [address] Assessment Encounter Date Assessment Date Assessment LastModified by Organization Details LastModified Time 02/01/2025 02/01/2025 Assessment - Right sided chest [...] Follow-up appointment with cardiology nurse practitioner at [facility] in February 2025. The following time was spent on todays E/M encounter, including preparing for the visit, reviewing results, seeing the patient, and documentation on the date of service of the encounter: 42 mins [email or web address] Not available 02/11/2025 14:36:41 Plan of Treatment Reminders Order Date Submit Date Provider Last Modified By Organization Details Last Modified Time Details Appointments None recorded. Lab CBC w/ auto diff 2024 025 ANALILIA [facility], [address], [place], [address], 08:07:08 amylase + lipase, serum 2024 025 ANALILIA [facility], [address], [place], [address], 08:07:08 CMP, serum or plasma 2024 025 ANALILIA [facility], [address], [place], [address], 08:07:07 Referral gastroenter ologist referral 2024 025 [email or web address] Not available 08:11:17 Procedures None recorded. Surgeries None recorded. Imaging None recorded. Medication Orders None recorded. Patient TargetsNo targets recorded. Patient InstructionsNo instructions recorded. Reason for Referral Command Center Officer Referral for Dysphagia Referring Physician: Suzanne Tejada, Family Medicine, Encounter Date: 02/01/2025 Results Created Date Observation Date Name Description Value Unit Range Abnormal Flag Note LastModifiedBy Organization Detail LastModifiedTime 02/02/2002/02/2025 CMP14 +EGFR glucose 103 mg/dL 70-99 above high normal Not Available [facility] ([facility]) [address] [place], [address], 02/02/2025 08:07:07 02/02/2002/02/2025 CMP14 +EGFR BUN 10 mg/dL 6-20 normal Not Available [facility] ([facility]) [address] [place], [address], 02/02/2025 08:07:07 02/02/2002/02/2025 CMP14 +EGFR creatinine 0.73 mg/dL 0.57-1 .00 normal Not Available [facility] ([facility]) [address] [place], [address], 02/02/2025 08:07:07 02/02/2002/02/2025 CMP14 +EGFR eGFR 118 mL/mi n/1.7 3 >59 normal Not Available [facility] ([facility]) [address] [place], [address], 02/02/2025 08:07:07 02/02/2002/02/2025 CMP14 +EGFR BUN/creatini ne ratio 14 9-23 normal Not Available [facility]) [address] [place], [address], 02/02/2025 08:07:07 02/02/2002/02/2025 CMP14 +EGFR sodium 138 mmol/ L 134-14 4 normal Not Available [facility] ([facility]) [address] [place], [address], 02/02/2025 08:07:07 02/02/20 25 02/02/2025 CMP14 +EGFR potassium 4.7 mmol/ L 3.5-5. 2 normal Not Available [facility] ([facility]) [address] [place], [address], 02/02/2025 08:07:07 02/02/2002/02/2025 CMP14 +EGFR chloride 102 mmol/ L 96-106 normal Not Available [facility] ([facility]) [address] [place], [address], 02/02/2025 08:07:07 02/02/2002/02/2025 CMP14 +EGFR carbon dioxide, total 22 mmol/ L 20-29 normal Not Available [facility] ([facility]) [address] [place], [address], 02/02/2025 08:07:07 02/02/2002/02/2025 CMP14 +EGFR calcium 9.7 mg/dL 8.7-10 .2 normal Not Available [facility] ([facility]) [address] [facility], [place], [address], 02/02/2025 08:07:07 02/02/2002/02/2025 CMP14 +EGFR protein, total 8.0 g/dL 6.0-8. 5 normal Not Available [facility] ([facility]) [address] [place], [address], 02/02/2025 08:07:07 02/02/2002/02/2025 CMP14 +EGFR albumin 4.6 g/dL 4.0-5. 0 normal Not Available [facility] ([facility]) [address] [place], [address], 02/02/2025 08:07:07 02/02/2002/02/2025 CMP14 +EGFR globulin, total 3.4 g/dL 1.5-4. 5 Not Available [facility] ([facility]) [address] [place], [address], 02/02/2025 08:07:07 02/02/2002/02/2025 CMP14 +EGFR bilirubin, total 0.4 mg/dL 0.0-1. 2 normal Not Available [facility] ([facility]) [address] [facility], [place], [address], 02/02/2025 08:07:07 02/02/2002/02/2025 CMP14 +EGFR alkaline phosphatase 102 IU/L 41-116 normal Not Available [facility]) [address] [facility], [place], [address], 02/02/2025 08:07:07 02/02/2002/02/2025 CMP14 +EGFR AST (SGOT) 38 IU/L 0-40 normal Not Available [facility] ([facility]) [address] [facility], [place], [address], 02/02/2025 08:07:07 02/02/2002/02/2025 CMP14 +EGFR ALT (SGPT) 52 IU/L 0-32 above high normal Not Available [facility] ([facility]) [address] [facility], [place], [address], 02/02/2025 08:07:07 02/02/2002/02/2025 CBC WITH DIFFE RENTI AL/PL ATELE T WBC 11.5 x10e3 /uL 3.4-10 .8 above high normal Not Available [facility] ([facility]) [address] [place], [address], 02/02/2025 08:07:08 02/02/2002/02/2025 CBC WITH DIFFE RENTI AL/PL ATELE T RBC 4.67 x10e6 /uL 3.77-5 .28 normal Not Available [facility] ([facility]) [address] [place], [address], 02/02/2025 08:07:08 02/02/2002/02/2025 CBC WITH DIFFE RENTI AL/PL ATELE T hemoglobin 13.3 g/dL 11.1-1 5.9 normal Not Available [facility] ([facility]) [address] [facility], [place], [address], 02/02/2025 08:07:08 02/02/2002/02/2025 CBC WITH DIFFE RENTI AL/PL ATELE T hematocrit 40.9 % 34.0-4 6.6 normal Not Available [facility] ([facility]) [address] [facility], [place], [address], 02/02/2025 08:07:08 02/02/2002/02/2025 CBC WITH DIFFE RENTI AL/PL ATELE T MCV 88 fL 79-97 normal Not Available [facility] ([facility]) [address] [facility], [place], [address], 02/02/2025 08:07:08 02/02/2002/02/2025 CBC WITH DIFFE RENTI AL/PL ATELE T MCH 28.5 pg 26.6-3 3.0 normal Not Available [facility] ([facility]) [address] [facility], [place], [address], 02/02/2025 08:07:08 02/02/2002/02/2025 CBC WITH DIFFE RENTI AL/PL ATELE T MCHC 32.5 g/dL 31.5-3 5.7 normal Not Available [facility] ([facility]) [address] [facility], [place], [address], 02/02/2025 08:07:08 02/02/2002/02/2025 CBC WITH DIFFE RENTI AL/PL ATELE T RDW 14.0 % 11.7-1 5.4 Not Available [facility] ([facility]) [address] [place], [address], 02/02/2025 08:07:08 02/02/2002/02/2025 CBC WITH DIFFE RENTI AL/PL ATELE T platelets 363 x10e3 /uL 150-45 0 normal Not Available [facility] ([facility]) [address] [facility], [place], [address], 02/02/2025 08:07:08 02/02/2002/02/2025 CBC WITH DIFFE RENTI AL/PL ATELE T neutrophils 55 % not estab. normal Not Available [facility] ([facility]) [address] [facility], [place], [address], 02/02/2025 08:07:08 02/02/2002/02/2025 CBC WITH DIFFE RENTI AL/PL ATELE T lymphs 33 % not estab. normal Not Available [facility] ([facility]) [address] [facility], [place], [address], 02/02/2025 08:07:08 02/02/2002/02/2025 CBC WITH DIFFE RENTI AL/PL ATELE T monocytes 8 % not estab. normal Not Available [facility] ([facility]) [address] [facility], [place], [address], 02/02/2025 08:07:08 02/02/2002/02/2025 CBC WITH DIFFE RENTI AL/PL ATELE T eos 2 % not estab. normal Not Available [facility] ([facility]) [address] [facility], [place], [address], 02/02/2025 08:07:08 02/02/2002/02/2025 CBC WITH DIFFE RENTI AL/PL ATELE T basos 1 % not estab. normal Not Available [facility] ([facility]) [address] [facility], [place], [address], 02/02/2025 08:07:08 02/02/2002/02/2025 CBC WITH DIFFE RENTI AL/PL ATELE T immature cells MANAGEMENT PSYCHOLOGIST Not Available [facility] ([facility]) [address] [facility], [place], [address], 02/02/2025 08:07:08 02/02/2002/02/2025 CBC WITH DIFFE RENTI AL/PL ATELE T neutrophils (absolute) 6.5 x10e3 /uL 1.4-7. 0 normal Not Available [facility] ([facility]) [address] [facility], [place], [address], 02/02/2025 08:07:08 02/02/2002/02/2025 CBC WITH DIFFE RENTI AL/PL ATELE T lymphs (absolute) 3.7 x10e3 /uL 0.7-3. 1 above high normal Not Available [facility] ([facility]) [address] [facility], [place], [address], 02/02/2025 08:07:08 02/02/2002/02/2025 CBC WITH DIFFE RENTI AL/PL ATELE T monocytes(ab solute) 0.9 x10e3 /uL 0.1-0. 9 normal Not Available [facility] ([facility]) [address] [facility], [place], [address], 02/02/2025 08:07:08 02/02/2002/02/2025 CBC WITH DIFFE RENTI AL/PL ATELE T eos (absolute) 0.2 x10e3 /uL 0.0-0. 4 normal Not Available [facility] ([facility]) [address] [facility], [place], [address], 02/02/2025 08:07:08 02/02/2002/02/2025 CBC WITH DIFFE RENTI AL/PL ATELE T baso (absolute) 0.1 x10e3 /uL 0.0-0. 2 normal Not Available [facility] ([facility]) [address] [facility], [place], [address], 02/02/2025 08:07:08 02/02/2002/02/2025 CBC WITH DIFFE RENTI AL/PL ATELE T immature granulocytes 1 % not estab. Not Available [facility] ([facility]) [address] [facility], [place], [address], 02/02/2025 08:07:08 02/02/2002/02/2025 CBC WITH DIFFE RENTI AL/PL ATELE T immature grans (abs) 0.1 x10e3 /uL 0.0-0. 1 Not Available [facility] ([facility]) [address] [facility], [place], [address], 02/02/2025 08:07:08 02/02/2002/02/2025 CBC WITH DIFFE RENTI AL/PL ATELE T NRBC MANAGEMENT PSYCHOLOGIST Not Available [facility] ([facility]) [address] [facility], [place], [address], 02/02/2025 08:07:08 02/02/2002/02/2025 CBC WITH DIFFE RENTI AL/PL ATELE T hematology comments: MANAGEMENT PSYCHOLOGIST Not Available [facility] ([facility]) [address] [facility], [place], [address], 02/02/2025 08:07:08 02/02/20 25 02/02/2025 MUKUND+L IPASE amylase 55 U/L 31-110 normal Not Available [facility] ([facility]) [address] [facility], [place], [address], 02/02/2025 08:07:08 02/02/2002/02/2025 MUKUND+L IPASE lipase 16 U/L 14-72 normal Not Available [facility] ([facility]) [address] [facility], [place], [address], 02/02/2025 08:07:08 02/12/20 25 02/09/2025 MRI, brain , w/wo contr ast No observ ation record ed. [facility] [address], [place], [address], 02/11/2025 16:33:04 03/12/20 25 03/11/2025 CT, abdom en + pelvi s, w/ contr ast No observ ation record ed. [email or web address] Not Available 02/23 10:26:23 Result Notes None recorded. Problems Name Problem SNOMED Code Status Onset Date Resolution Date Notes Provider Name and Address Organization Details Recorded Time Neurocardio genic syncope 165734957 Active 2023 SUZANNE TEJADA PA-C [address] [place] [address], [facility] [address], [place], [address], [place] [facility] 5 11:55:52 Gender identity finding 523408883 Active 2023 SUZANNE TEJADA PA-C [address] [place] [address], [facility] [address], [place], [address], [place] [facility] 4 08:48:39 History of eating disorder 5775455045805 01 Active 2023 SUZANNE TEJADA PA-C [address] [place] [address], [facility] [address], [place], [address], [place] [facility] 4 08:48:42 Obsessive-c ompulsive disorder 307759972 Active 2023 SUZNANE TEJADA PA-C [address] [place] [address], [facility] [address], [place], [place], [address], [place] [facility] 4 08:48:43 Depressive disorder 44241149 Active 2023 SUZANNE TEJADA PA-C [address] [place] [address] [address], [place], [address], [place] [facility] 4 08:48:46 Bipolar II disorder 39750747 Active 2023 SUZANNE TEJADA PA-C [address] [place] [address] [address], [place], [address], [place] [facility] 4 08:48:46 Generalized anxiety disorder 18095763 Active 2023 SUZANNE TEJADA PA-C [address] [place] [address] [address], [place], [address], [place] [facility] 4 08:48:59 Palpitation s 18491566 Active 2024 SUZANNE TEJADA PA-C [address] [facility] [address], [place], [address], [place] [facility] 5 11:55:52 Orthostatic lightheaded ness 18160045 Active 2024 SUZANNE TEJADA PA-C [address] [facility] [address], [place], [address], [place] [facility] 5 11:55:53 Elevated d-dimer 041236220 Active 2024 Marbella Coleman NP [address] [facility] [address], [place], [address], [place] [facility] 5 15:59:53 Gastroesoph ageal reflux disease, unspecified whether esophagitis present 449897807 Active 2024 Marbella Coleman NP [address] [place] [address], [place], [place], [address], [place] [facility] 5 16:02:42 History of cholecystec kenneth 528355061 Active 2024 SUZANNE TEJADA PA-C [address] [place] [address], [place], [address], [place] [facility] 5 06:34:24 Problem Notes None recorded. Procedures Surgical History Date Name Laterality Status Provider Name and Address Organization Details Recorded Time cholecystectomy completed SUZANNE TEJADA PA-C [address] [place] [address], [place], [address], [place] [facility] 02/01/2025 11:47:40 Imaging Results None recorded. Procedure Notes None recorded. Medical Equipment None Reported. Allergies Allergen ID Allergen Name Allergen Category Reaction Reaction Severity Criticality Documentation Date Start Date Code Code System Note Provider Name and Address Organization Details Recorded Time 62410 beef allergeni c extract food,medi cation abdominal pain Not available Not available 03/12/20252024 69704 9 RxNorm Not Available analilia - External Data Service - prod 13:09:37 Medications Name Sig Start Date Stop Date Status Note LastModified by Organization Details LastModified Time fluoxetine 40 mg capsule TAKE 1 CAPSULE BY MOUTH EVERY DAY 08/05 /2025 completed Not Available Not Available Not Available [...] Last Updated DateTime 170.18 cm 46 kg/m2 282408. 16 g 99 % 67 /min 126/74 mm[Hg] Idalia hudson [facility], [facility] Primary 11:32:08 Social History Question Answer Notes LastModified by Organizat ion Details LastModified Time Tobacco Smoking Status Never Smoker SUZANNE TEJADA PA-C [address] [place] [address], [address], [facility] 04/16/2024 08:24:32 What Was The Date Of Your Most Recent Tobacco Screening? 04/16/2024 Socially Information not available 04/16/2024 Sex: Unknown Functional Status Question Answer Note LastModified by Organizat ion Details LastModified Time Do you use any illicit or recreational drugs? edibles or smoking 5-7 times per week [email or web address] Information not available 04/16/2024 Mental Status None recorded. Family History Relationship Description Onset Age of this Age Resolved Age Notes LastModified by Organization Details LastModified Time Maternal Grandmother Diabetes mellitus Not available 2023 08:20:03 Maternal Grandmother Myocardial infarction 45 undete rmined if AL was cause of [email or web address] Not available 04/16/2024 08:21:13 Maternal Uncle Diabetes mellitus [email or web address] Not available 2023 08:20:03 Paternal Grandmother Myocardial infarction 50 [email or web address] Not available 04/16 08:21:13 Father Hypertensive disorder [email or web address] Not available 2023 08:21:56 Unspecified Relation Obesity matern al side Not available 04/16/2024 08:22:10 Unspecified Relation Depressive disorder [email or web address] Not available 2023 08:22:56 Unspecified Relation Bipolar disorder [email or web address] Not available 2023 08:23:10 Unspecified Relation Anxiety disorder [email or web address] Not available 2023 08:23:23 Medical History No medical history recorded. Gynecological HistoryNo gynecological history recorded. Obstetrics History GPAL:G 0 P 0 0 0 0 Past Encounters Encounter ID Performer Location Encounter Start Date Encounter Closed Date Diagnosis/Indication Diagnosis SNOMED-CT Code Diagnosis ICD10 Code Diagnosis IMO Codes Diagnosis Note [id number] Justino Santos DO [address] [place] [address] 01/07/2025 09:24:23 01/07/2025 09:54:22 Vasovagal syncope 168081632 R55 288284 Orthostati c hypotension 81798024 R42 0495061 Depressive disorder 3548 9007 F32.A Mild major depression 87 701935 F32.0 04372 Recurrent major depressive episodes, mild 208335918 F33.0 79766 [id number] Justino Santos DO [address] [place] [address] 01/17/2025 12:40:23 01/17/2025 13:27:07 Vasovagal syncope 137216827 R55 183940 Multiple sclerosis 82808 007 G35 87959 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 [id number] SUZANNE TEJADA PA-C [address] [place] [address] 02/01/2025 11:22:12 02/01/2025 12:19:27 Right sided chest pain 305983749 R07.9 98524918 History of cholecystectomy 647184581 Z90.49 069743 Dysphagia 47335619 R13.1 0 [id number] Health Concerns Section Related Observation LastModified by Organization Dinotara jared LastModified Time None Recorded Concern Status LastModified by Organization Details LastModified Time None Recorded Payers Encounter Date Sequence Insurance Name Policy Number Policy Ross Covered Member ID Ross Member ID Guarantor Name 02/01/2025 2 [facility] [employer] PLAN (HMO) [id number] Brooke Gonzalessell [id number] Brooke Osorio 02/01/2025 1 [facility] [employer] - TOGETHER WITH [employer] (MEDICAID REPLACEMENT - HMO) [id number] Brooke L Jo [id number] Brooke Osorio Notes Date Note Type Note Provider Name and Address Organization Details Recorded Time 02/01/2025 text/html ROS as noted in the [...] family history of MS. SUZANNE TEJADA PA-C [address] [place] [address], [place], [address], [place] [facility] 02/11/2025 14:36:47 OBGyn Episode No OBEpisode recorded.
--- OUTSIDE RECORDS SUMMARY | 2025-04-19 02:49 | XMS_ITS | Clinical Summary ---
Author Organization [facility] Address [address] [place] [address] Phone Care Team Providers Care Wet Press Tender Name Role Phone Physician, No Pcp Primary [...] to complete this topic Insurance Care Teams Wet Press Tender Relationship Specialty Start Date End Date Physician, No Pcp PCP - General 09/03/24
--- OUTSIDE RECORDS SUMMARY | 2025-04-19 02:49 | XMS_ITS | Clinical Summary ---
Author Organization [facility] Address [address] [place] [address] Care Team Providers Care Orthotic/Prosthetic Clinician Name Role Phone Justino Santos MD Primary Care Provider [phone] Allergies Active Allergy Reactions Criticality Noted Date [...] st Contact Info) Description 05/15/2025 Hospital Encounter [facility] Operating Room [address] [place] [address] Sherri Balderas MD [address] [place] [address] Scheduled Procedures Name Priority Associated Diagnoses Date/Ti [...] Diagnosed Date Autogenerated Problem 10/01/2024 Care Teams Orthotic/Prosthetic Clinician Relationship Specialty Start Date End Date Justino Santos MD [address] [place] [address] PCP - General Family Medicine 04/04/24
--- OUTSIDE RECORDS SUMMARY | 2025-04-19 02:49 | XMS_ITS | Patient Health Record ---
Author Organization [facility] Address [address] [facility] [address] [place] [address] Care Team Providers Care Furniture Crater Name Role Phone LISA FRASER Primary Care Provider Unavail Shantelle Alfaro Unavailable [phone] Results Component Value Reference Range Notes TISSUE PATHOLOGY (Not yet re viewed by provider) Interpretation: Performing Lab:NL2, [facility] [employer] [facility], [address] [place] [address], [phone] Lacy Jcakson Notes/Report: FASTING: UNKNOWN CC: DR.D. HILTON Received Date: CLINICAL INFORMATION ICD-10: K21.9, R10.13 PATHOLOGIST Lolis Jackson D.O. Board Certified in Anatomic, Clinical and Cytopathology (electronic signature) Consulting Pathologist [facility] [address] [place] [address] Pathologist Release Date/Time: 04/09/2025 03:08PM A SOURCE Duodenum, biops y: A GROSS DESCRIPTION Specimen is received in 10% neutral buffered formalin, labeled with patient's name and source duodenum BX and consists of multiple guzman pieces of tissue measuring from 0.2 x 0.2 x 0.1 cm up to 0.3 x 0..2 x 0.1 cm in maximum dimension. Specimen is filtered and submitted entirely in cassette(s) A1. Gross exam(s) performed at: [facility] [address] [address] Director Of Workforce Development: LACY JACKSON MD A DIAGNOSIS Duodenal mucosa within normal limits. B SOURCE Stomach, biopsy : B GROSS DESCRIPTION Specimen is received in 10% neutral buffered formalin, labeled with patient's name and source gastric BX and contains 2 pieces of guzman tissue measuring 0.2 x 0.2 x 0.1 cm and 0.4 x 0.2 x 0.1 cm. Specimen is filtered and submitted entirely in cassette B1. B DIAGNOSIS Gastric antral mucosa with reactive gastropathy. C SOURCE Esophagus, dist al, biopsy: C GROSS DESCRIPTION Specimen is received in 10% neutral buffered formalin, labeled with patient's name and source distal esophagus and contains 3 pieces of guzman tissue measuring from 0.2 x 0.2 x 0.1 cm up to 0.5 x 0.2 x 0.1 cm. Specimen is filtered and submitted entirely in cassette C1. C DIAGNOSIS Squamocolumnar mucosa with reflux type changes, intraepithelial eosinophils (up to 15/hpf) and chronic carditis. No intestinal metaplasia. Reason For Referral No Information Encounters Encounter Location Date Provider Diagnosis [address] [address] 04/08/2025 Shantelle Martínez Plan Of Treatment Pending Test Test Name Order Date TISSUE PATHOLOGY 04/08/2025 Insurance Providers Payer Name Payer Address Payer Phone Subscriber Number Group Number Insured Name Patient Relationship to Insured Coverage Start Date Coverage End Date [facility] [address] [place] [address] [phone] [id number] FIONA SAUNDERS Self - patient is the insured
--- NOTE | 2025-04-19 03:40 | ED.URI ---
HPI - URI/Sore Throat General Chief Complaint: Upper Respiratory Symptoms Stated Complaint: SOB Time Seen by Provider: 04/19/25 03:40 Source: patient Mode of arrival: ambulatory Limitations: no limitations History of Present Illness ED Provider: Nabil REEDER HPI Narrative: The patient is a 25-year-old female presenting to the ED for evaluation of viral URI symptoms. The patient reports she has been experiencing a cough over the past few weeks which she has been attributing to her recently diagnosed gastritis/gastric ulcer disease. However yesterday she developed a different painful, congested cough intermittently productive of white phlegm, postnasal drip, generalized malaise, and intermittent subjective chills without objective fever. The patient denies associated chest pain at rest, pleurisy, abdominal pain, vomiting, diarrhea, recent trauma, or known recent sick contacts. The patient reports she took Tessalon Perles at home with no relief of cough and presents to the ED for evaluation. Related Data Previous Rx's ?Medication ?Instructions ?Recorded sucralfate 1 gram tablet (Carafate) 1 g PO BID #30 tabs 03/12/25 Allergies Allergy/AdvReac Type Severity Reaction Status Date / Time No Known Allergies Allergy Verified 04/19/25 01:01 Review of Systems Review of Systems: Yes all other systems are reviewed and are negative PMFSH Social History Social History Alcohol intake: current Alcohol intake frequency: holidays/special occasions only Alcohol type: beer, wine and hard liquor Smoked in Last 30 Days: No Substance Use Type: Marijuana Advance Directives: No Physical Exam Vital Signs: Vital Signs: Last Vital Signs Temp 98.5 F 04/19/25 05:24 Pulse 100 04/19/25 05:24 Resp 24 H 04/19/25 05:24 BP 114/76 04/19/25 05:24 Pulse Ox 96 04/19/25 05:24 O2 Del Method Room Air 04/19/25 05:24 BMI result Body Mass Index 46.5 CONSTITUTIONAL: The patient appears non-toxic, well nourished and in no acute distress. Vital signs as documented. HEAD: Atraumatic, normocephalic. EYES: EOMs grossly intact, pupils equal, conjunctiva clear, no exudate. ENT: Nares patent, no discharge. Airway patent, no audible stridor, visible mucosa is pink and moist without noted lesions. NECK: Trachea is midline, no obvious masses or gross abnormalities. CHEST: Symmetric movement, normal appearance. LUNGS: LS present and CTAB, no w/r/r. Non-labored work of breathing. CARDIAC: Regular Rhythm, S1/S2 appreciated, no murmurs, rubs or gallops. ABDOMEN: Abdomen soft and non-tender x4 quadrants, no palpable masses or organomegaly. : Deferred. EXTREMITIES: Normal tone, moves all extremities spontaneously without reported pain. No obvious acute injury or deformity noted. NEURO: Alert and oriented x3, CN II-XII appear grossly intact. Cerebellar Functioning grossly intact. No obvious sensory or motor deficits. Speech clear and appropriate. PSYCH: normal affect, appropriate eye contact, fluid speech, with appropriate response to questioning. No reported suicidality or homicidality. SKIN: Warm, dry, color appropriate, normal turgor. No rashes noted. Medications Administered Discontinued Medications Generic Name Dose Route Start Last Admin Trade Name Freq PRN Reason Stop Dose Admin Acetaminophen 975 mg 04/19/25 05:00 04/19/25 05:19 Acetaminophen 325 Mg Tablet PO 04/19/25 05:01 975 mg ONCE ONE Administration Sodium Chloride 1,000 mls @ 999 mls/hr 04/19/25 05:00 04/19/25 05:17 Ns IV 04/19/25 06:00 999 mls/hr .Q1H1M THOMAS Administration Ibuprofen 600 mg 04/19/25 05:00 04/19/25 05:19 Ibuprofen 600 Mg Tablet PO 04/19/25 05:01 600 mg ONCE ONE Administration Medical Decision Making Medical Decision Making [facility] Narrative: 5:08 AM 04/19/2025 (Truong REEDER): The patient is a 25-year-old female presenting to the ED for evaluation of viral URI symptoms. The patient reports she has been experiencing a cough over the past few weeks which she has been attributing to her recently diagnosed gastritis/gastric ulcer disease. However yesterday she developed a different painful, congested cough intermittently productive of white phlegm, postnasal drip, generalized malaise, and intermittent subjective chills without objective fever. The patient denies associated chest pain at rest, pleurisy, abdominal pain, vomiting, diarrhea, recent trauma, or known recent sick contacts. The patient reports she took Tessalon Perles at home with no relief of cough and presents to the ED for evaluation. On exam patient is nontoxic appearing, in no acute distress, normal respiratory effort, no adventitious lung sounds. The patient's abdominal exam is benign, posterior pharynx shows no exudate. The patient's EKG is nonischemic, chest x-ray shows mild basilar atelectasis. The patient's viral swab is positive for influenza A. This is likely the cause of the patient's symptoms. Patient will be treated with IV fluid hydration, Tylenol, ibuprofen, and pending improvement in heart rate patient will be discharged with supportive care. 6:02 AM 04/19/2025 (Truong REEDER): Heart rate has improved to 95, patient will be discharged with supportive care as outlined above. Admission/Observation Consideration of admission/observation: Escalation of care including admission/observation considered Lab Data Labs: Lab Results 04/19/25 Range/Units 03:59 Influenza Type A (PCR) POSITIVE A (Negative) Influenza Type B (PCR) NEGATIVE (Negative) RSV RNA Qual (PCR) NEGATIVE (Negative) SARS-CoV-2 RNA (RT-PCR) NEGATIVE (Negative) Independent Interpretation I performed an independent interpretation of an: EKG (EKG shows sinus tachycardia with a rate of 105, no evidence of acute ischemia, no ST elevation, no ectopy. QTC 430. Compared to previous on 02/02/2025 there are no significant morphology changes.) Radiology Impression Discussion of test interpretation with radiology: I have reviewed the radiologist's reading. Radiologist Impression: 2 view chest x-ray Comparison: Chest x-ray from 02/03/2025 Findings: Low lung volumes with mild bibasilar atelectasis/pneumonitis. No lobar consolidation. No pneumothorax or pleural effusion. Imaged mediastinum appears unchanged. Osseous structures are unremarkable for technique IMPRESSION: Mild bibasilar atelectasis/pneumonitis This document has been electronically signed by: Baldo Hickey MD on 04/19/2025 01:45:19 External Record Review External record reviewed: Outpatient record and Prior outpatient labs Discharge Plan Discharge Clinical Impression: Influenza Patient Disposition: Home, Self-Care Instructions: Influenza (ED) Additional Instructions: Thank you for choosing [facility]'s Emergency Department for your care today. Thankfully your EKG, chest x-ray, exam, and vital signs today are reassuring. At this time there is no indication for admission to the hospital or continued ED observation, and it is safe to discharge you home. You tested positive for influenza A, this is likely the cause of your symptoms over the past few days. Your heart rate was slightly high while in the emergency department however following IV fluid hydration and anti-inflammatories, your heart rate improved and it is now safe to discharge you home. You should take alternating (staggered) doses of ibuprofen 600mg and Tylenol 1000mg every 4 hours as needed for any additional pain. Please stay well hydrated and get plenty of rest. Please follow up with your primary care physician for re-evaluation, additional management of your symptoms, and continued preventative care. If you do not have a primary care physician, please call the [facility] at [phone] to establish a new primary care physician. While waiting to establish your new primary care physician, you can call our [facility] at [phone] for non-emergency needs. Please return to the emergency department if you develop a severe or sudden change in your symptoms, a fever over 100.4 that does not improve with Tylenol or Ibuprofen, recurrent vomiting, or any other new or worsening symptoms or concerns. Prescriptions: No Action sucralfate [Carafate] 1 gram tablet 1 g PO BID Qty: 30 0RF Referrals: Justino Santos DO [Primary Care Provider, Internal Medicine] Clinical Impression: Influenza Print Language: French
--- NOTE | 2025-04-19 03:54 | PC.NURSE ---
pt reports pain in lungs, started 2 weeks ago, runny nose, difficulty breathing. hx of asthma. no one sick at home.
[2025-04-19 03:55] VITALS: BP 109/63; PULSE 104; RESP 18; TEMP 36.8; O2SAT 99
[2025-04-19 04:40] LABS: Resp Syncy Virus RNA Qual PCR NEGATIVE (Negative); SARS COV2 PCR INHOUSE NEGATIVE (Negative)
[2025-04-19 05:24] VITALS: BP 114/76; PULSE 100; RESP 24; TEMP 36.9; O2SAT 96
[2025-04-19 06:12] VITALS: PULSE 93
[2025-04-19 07:02] VITALS: BP 100/56; PULSE 106; RESP 20; TEMP 36.9; O2SAT 96
[2025-04-19 07:03] VITALS: BP 100/56; PULSE 106; RESP 20; TEMP 36.9; O2SAT 96
== END 2025-04-19 07:04 | disposition home or self-care (01) ==
PROVIDERS: Physician Assistant; Emergency Provider Emergency Medicine; PCP Family Medicine
DX: J10.1 Influenza due to other identified influenza virus with other respiratory manifestations (principal); R06.02 Shortness of breath; R05.9 Cough, unspecified; M79.10 Myalgia, unspecified site; R07.9 Chest pain, unspecified; R00.0 Tachycardia, unspecified
CPT/HCPCS: 71046; 87637; 93005; 96360; 96361; 99284; 99285

== ENCOUNTER → 2025-04-19 01:16 | Outpatient (BNV) | payer OTHER, SELFPAY | PROVIDERS: PCP Family Medicine; Visit Provider Radiology Neuroradiology | DX: R06.02 Shortness of breath (principal) | CPT/HCPCS: 71046 ==

== ENCOUNTER → 2025-04-19 02:40 | Outpatient (BNV) | payer OTHER, SELFPAY | PROVIDERS: Emergency Provider Emergency Medicine; PCP Family Medicine; Visit Provider Internal Medicine Cardiovascular Disease | DX: R00.0 Tachycardia, unspecified (principal) | CPT/HCPCS: 93010 ==